=== PATIENT | female | born 1945 | race Caucasian/White ===

== ENCOUNTER 2018-10-01 19:59 | Emergency (ER) | payer MEDICARE, OTHER ==
[2018-10-01 20:10] VITALS: BP 158/92
--- NOTE | 2018-10-01 21:46 | EDM.PDOC ---
ED HPI GENERAL MEDICAL PROBLEM - General Chief Complaint: Flank Pain Stated Complaint: SIDE PAIN Time Seen by Provider: 10/01/18 20:27 Source of Information: Reports: Family, RN Notes Reviewed History Limitations: Reports: No Limitations - History of Present Illness INITIAL COMMENTS - FREE TEXT/NARRATIVE: Patient is a 73-year-old female who presents to the ED for the evaluation of bilateral side pain. The daughter notes that the patient does suffer from dementia, and so was not a very good historian. The patient was started on treatment for UTI on Wednesday, this was Keflex 250 mg daily, the daughter states that there is only one pill left, and the mother's symptoms have not seemed to subside. The daughter noticed that her mother seemed to still be uncomfortable tonight, and she is really unsure of how long the pain has been there. The patient does not characterize how long the pain has been present. She does point to the right side mainly when complaining about the pain. The daughter notes that the patient has had a cholecystectomy, but still retains her appendix. They do not know if she's had any fevers or chills at this time. She has not been complaining about any nausea or vomiting or diarrhea either. The daughter states that the patient's appetite has been good. Bilateral Lower Flank Pain Score (Numeric/FACES): 8 - Related Data Allergies Allergy/AdvReac Type Severity Reaction Status Date / Time Sulfa (Sulfonamide Allergy Rash Verified 10/01/18 20:06 Antibiotics) Home Meds: Home Meds Aspirin [Stan Chewable] 81 mg PO DAILY 12/10/13 [History] Aspirin/Acetaminophen/Caffeine [Migraine Relief Caplet] 250 mg PO Q8H PRN [History] Healthy Cell Growth 1 tab PO DAILY 09/02/14 [History] MV,Ca,Iron,Min/FA/Phytosterol [[facility] Spectravite Cardio Tablet] 1 tab PO DAILY [History] Saffron Extract [Saffron] 15 mg PO DAILY 09/02/14 [History] Sertraline [Zoloft] 50 mg PO DAILY 09/02/14 [History] cephALEXin [Keflex] 250 mg PO DAILY 09/02/14 [History] Memantine HCl [Namenda XR] 28 mg PO DAILY 03/25/16 [History] Rivastigmine [Exelon] 4.6 mg TD DAILY 03/25/16 [History] atorvaSTATin [Lipitor] 10 mg PO BEDTIME 03/25/16 [History] Past Medical History HEENT History: Reports: Impaired Vision Other HEENT History: wears glasses Cardiovascular History: Reports: High Cholesterol, Hypertension Genitourinary History: Reports: UTI, Recurrent 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: Reports: Neurological History: Reports: Alzheimers Disease Other Neuro History: dementia Psychiatric History: Reports: Alzheimers Disease, Dementia Endocrine/Metabolic History: Reports: Other (See Below) Other Endocrine/Metabolic History: 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 - Past Surgical History GI Surgical History: Reports: Cholecystectomy Social & Family History - Tobacco Use Smoking Status *Q: Never Smoker - Caffeine Use Caffeine Use: Reports: None - Recreational Drug Use Recreational Drug Use: No ED ROS GENERAL - Review of Systems Review Of Systems: See Below Constitutional: Denies: Fever, Chills HEENT: Reports: No Symptoms Respiratory: Reports: No Symptoms Cardiovascular: Reports: No Symptoms Endocrine: Reports: No Symptoms GI/Abdominal: Reports: Abdominal Pain (right sided pain) : Reports: No Symptoms, Flank Pain (right sided pain) Musculoskeletal: Reports: No Symptoms Skin: Reports: No Symptoms Neurological: Reports: No Symptoms Psychiatric: Reports: Other (dementia) Hematologic/Lymphatic: Reports: No Symptoms Immunologic: Reports: No Symptoms ED EXAM, RENAL/ - Physical Exam Exam: See Below Exam Limited By: No Limitations General Appearance: Alert, WD/WN, No Apparent Distress Head: Atraumatic, Normocephalic Neck: Normal Inspection Respiratory/Chest: No Respiratory Distress, Lungs Clear, Normal Breath Sounds, No Accessory Muscle Use, Chest Non-Tender Cardiovascular: Normal Peripheral Pulses, Regular Rate, Rhythm, No Murmur GI/Abdominal: Normal Bowel Sounds, Soft, No Distention, No Mass, Tender (right flank/side pain.) Back Exam: Normal Inspection. No: CVA Tenderness (L), CVA Tenderness (R) Extremities: Normal Inspection, Normal Capillary Refill Neurological: Alert, Oriented, Normal Cognition (pt does have dementia, but is answering questions appropriately), No Motor/Sensory Deficits Psychiatric: Normal Affect, Normal Mood Skin Exam: Warm, Dry, Intact, Normal Color, No Rash Course - Vital Signs Last Recorded V/S: Last Vital Signs Temp 97.4 F 10/01/18 20:06 Pulse 73 06/15/19 20:06 Resp 18 10/01/18 20:06 BP 158/92 H 10/01/18 20:06 Pulse Ox 100 10/01/18 20:06 - Orders/Labs/Meds Orders: Active Orders 24 hr Category Date Time Status Abdomen Pelvis wo Cont [CT] Stat Exams 10/01/18 20:47 Ordered Labs: Laboratory Tests 10/01/18 Range/Units 22:05 Urine Color Yellow (Yellow) Urine Appearance Clear (Clear) Urine pH 6.0 (5.0-8.0) Ur Specific [place] 1.010 (1.005-1.030) Urine Protein Negative (Negative) Urine Glucose (UA) Negative (Negative) Urine Ketones Negative (Negative) Urine Occult Blood Negative (Negative) Urine Nitrite Negative (Negative) Urine Bilirubin Negative (Negative) Urine Urobilinogen 0.2 (0.2-1.0) Ur Leukocyte Esterase Negative (Negative) Urine RBC 0-5 (0-5) /hpf Urine WBC 0-5 (0-5) /hpf Ur Epithelial Cells 5-10 H (0-5) /hpf Urine Bacteria Few (FEW) /hpf Urine Mucus Not seen (FEW) /hpf - Re-Assessments/Exams Free Text/Narrative Re-Assessment/Exam: 10/01/18 21:46 Patient presents to the ED for the evaluation of a possible lingering UTI. I have ordered a UA for further evaluation, and a abdomen CT to rule out pyelonephritis at this time. 10/01/18 22:[address] is done, and read by V rad, a moderate-sized hiatal hernia noted. Extensive colonic diverticulosis. Small focus of gas in the urinary bladder which could represent a UTI or instrumentation. The patient was unable to give a urinary sample before the CT, so a cathed urinary specimen was obtained after the CT. So the small focus of gas may more likely be due to a UTI that is not resolving. There is no sign of pyelonephritis at this time. UA results are still pending. 10/01/18 22:21 The patient does seem to have quite a bit of stool throughout her colon as well , which would suggest a small bit of constipation. 10/01/18 22:45 UA has been resulted and does not demonstrate any signs of lingering infection. Will provide the daughter with bottle of magnesium citrate to help relieve constipation. Departure - Departure Time of Disposition: 22:46 Disposition: Home, Self-Care 01 Condition: Fair Clinical Impression: Abdominal pain Qualifiers: Abdominal location: generalized Qualified Code(s): R10.84 - Generalized abdominal pain Constipation Qualifiers: Constipation type: other constipation type Qualified Code(s): K59.09 - Other constipation - Discharge Information *PRESCRIPTION DRUG MONITORING PROGRAM REVIEWED*: No *COPY OF PRESCRIPTION DRUG MONITORING REPORT IN PATIENT KIRSTEN: No Instructions: Constipation, Adult, [id number] Referrals: Magdy Cesar MD [Primary Care Provider] - Forms: ED Department Discharge Additional Instructions: Katie has been evaluated in the ED today for her generalized abdominal pain. Her evaluation today included a urinalysis and an abdomen and pelvis CT without contrast. Her urinalysis did not demonstrate any sign of a lingering bladder infection, please keep giving the Keflex as directed until it is gone. Her CT did demonstrate quite a large amount of stool in her colon, you have been provided with a bottle of magnesium citrate, please give one half bottle wait a few hours and then repeat with the last half bottle if no results. Recommend that you increase her oral fluid intake, and provide her with a stool softener daily such as MiraLAX or Dulcolax to keep her stools regular. Please return to the ED if her symptoms should change or worsen. - My Orders Last 24 Hours: My Active Orders 10/01/18 20:47 Abdomen Pelvis wo Cont [CT] Stat - Assessment/Plan Last 24 Hours: My Active Orders 10/01/18 20:47 Abdomen Pelvis wo Cont [CT] Stat
[2018-10-01] MEDS ORDERED: Magnesium Citrate Solution 296 ML Bottle PO ONE (22:46)
--- NOTE | 2018-10-03 10:42 | CT ---
CT abdomen and pelvis Technique: Multiple axial sections were obtained from the top of the liver inferiorly through the pubic symphysis. Intravenous and oral contrast not utilized. Lack of intravenous contrast does limit evaluation for pyelonephritis. Comparison: No prior CT abdomen or pelvis exam, previous abdominal x-ray of 01/17/13 is available. Visualized lung bases show nothing acute. Moderately large hiatal hernia is noted. Noncontrast appearance of the liver shows no discrete abnormality. Spleen shows no discrete abnormality. Adrenal glands show no nodule. Surgical clips are seen from prior cholecystectomy. Kidneys show no abnormal calcifications. No calcifications are seen along the course of the ureters. Aorta shows atherosclerotic calcification without aneurysm. No retroperitoneal adenopathy is seen. No mesenteric abnormalities are noted. Mild increased stool is seen throughout the colon. Appendix believed to be seen and is normal in size. Diffuse colonic diverticuli are seen without diverticulitis. Degenerative change and scoliosis are seen within the spine. Spondylolisthesis noted at L5-S1 due to degenerative apophyseal change. Several levels of vacuum disc phenomena are seen. Small amount of air noted within the bladder. Impression: 1. Small amount of air within the bladder. This presumably is due to recent instrumentation. Please correlate. 2. Mild increased stool within the colon and findings believed to be incidental as described above. Diagnostic code #2 I agree with preliminary report from [facility], finalized on 10/01/18, 11:16 PM Central Time
== END 2018-10-01 22:55 | disposition home or self-care (01) ==
LOC: JD.ED 19:59
DX: K59.09 Other constipation (principal); I10 Essential (primary) hypertension; E78.00 Pure hypercholesterolemia, unspecified; G30.9 Alzheimer's disease, unspecified; F02.80 Dementia in other diseases classified elsewhere, unspecified severity, without behavioral disturbance, psychotic disturbance, mood disturbance, and anxiety; Z79.82 Long term (current) use of aspirin; Z79.899 Other long term (current) drug therapy; Z88.2 Allergy status to sulfonamides
CPT/HCPCS: 74176; 81001; 99284; A9270; 99282

== ENCOUNTER 2019-05-06 15:00 | Emergency (ER) | payer MEDICARE, BC ==
--- NOTE | 2019-05-06 15:37 | EDM.PDOC ---
ED HPI GENERAL MEDICAL PROBLEM - General Chief Complaint: General Stated Complaint: PAIN ALL OVER Time Seen by Provider: 05/06/19 15:26 Source of Information: Reports: Patient, Family History Limitations: Reports: Other (Dementia) - History of Present Illness INITIAL COMMENTS - FREE TEXT/NARRATIVE: Patient is unfortunate 74-year-old female who presents to the emergency Department today with complaint of abdominal pain. Patient has severe dementia and started having pain approximately one hour prior to arrival daughter reports she was with the patient with the pain started and she brought patient to the emergency part for evaluation patient has had no nausea, no vomiting, no chest pain, no shortness of breath. Daughter reports that this pain is similar to previous episodes were patient has had a UTI. She also reports that one previous time she did have constipation with this pain. Patient does not appear ill is not running any fever is active and responsive however she is pleasantly confused Vaginal Pain Score (Numeric/FACES): 10 Right Hip Pain Score (Numeric/FACES): 6 - Related Data Allergies Allergy/AdvReac Type Severity Reaction Status Date / Time Sulfa (Sulfonamide Allergy Rash Verified 11/06/18 11:08 Antibiotics) Home Meds: Home Meds Sertraline [Zoloft] 25 mg PO DAILY 09/02/14 [History] Memantine HCl [Namenda XR] 28 mg PO DAILY 03/25/16 [History] Rivastigmine [Exelon] 4.6 mg TD DAILY 03/25/16 [History] atorvaSTATin [Lipitor] 5 mg PO BEDTIME 03/25/16 [History] Cholecalciferol (Vitamin D3) [Vitamin D3] 2,000 unit PO DAILY 05/06/19 [History] Cranberry 0 mg PO DAILY 05/06/19 [History] KCl/Na Sulf,Bicarb,Cl/PEG 3351 [GoLytely] 4,000 ml PO ONETIME #1 bottle [Rx] L.acidoph,Paracasei, B.lactis [Probiotic] 1 cap PO DAILY 05/06/19 [History] Levothyroxine [Synthroid] 88 mcg PO DAILY 05/06/19 [History] Lisinopril [Zestril] 5 mg PO DAILY 05/06/19 [History] Phytonadione [Vitamin K] 50 mcg PO DAILY 01/18/20 [History] Ubiquinol 100 mg PO DAILY 05/06/19 [History] Past Medical History HEENT History: Reports: Impaired Vision Other HEENT History: wears glasses Cardiovascular History: Reports: High Cholesterol, Hypertension Genitourinary History: Reports: UTI, Recurrent DIRECTOR GENERAL History: Reports: Neurological History: Reports: Alzheimers Disease Other Neuro History: dementia Psychiatric History: Reports: Alzheimers Disease, Dementia Endocrine/Metabolic History: Reports: Other (See Below) Other Endocrine/Metabolic 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 Denies: Constipation, Diarrhea, Decreased Appetite ED EXAM, GENERAL - Physical Exam Exam: See Below Exam Limited By: Other (Dementia) General Appearance: Alert, WD/WN, Moderate Distress Respiratory/Chest: No Respiratory Distress, Lungs Clear, Normal Breath Sounds, No Accessory Muscle Use, Chest Non-Tender Cardiovascular: Normal Peripheral Pulses, Regular Rate, Rhythm, No Edema, No Gallop, No JVD, No Murmur, No Rub GI/Abdominal: Normal Bowel Sounds, Soft, Tender (Suprapubic) Rectal (Female) Exam: Normal Exam, Other (No fecal impaction female presents for exam) Back Exam: Normal Inspection, Full Range of Motion, NT Extremities: Normal Inspection, Normal Range of Motion, Non-Tender, Normal Capillary Refill, No Pedal Edema Neurological: Alert, Other (Pleasantly confused). No: Oriented Skin Exam: Warm, Dry, Intact Course - Orders/Labs/Meds Orders: Active Orders 24 hr Category Date Time Status Abdomen 2V AP Flat Upright [CR] Stat Exams 05/06/19 15:35 Taken UA W/MICROSCOPIC [URIN] Stat Lab 05/06/19 15:55 Results Labs: Laboratory Tests 05/06/19 Range/Units 15:55 Urine Color Yellow (Yellow) Urine Appearance Clear (Clear) Urine pH 7.0 (5.0-8.0) Ur Specific [place] 1.025 (1.005-1.030) Urine Protein 3+ H (Negative) Urine Glucose (UA) Negative (Negative) Urine Ketones Negative (Negative) Urine Occult Blood 2+ H (Negative) Urine Nitrite Negative (Negative) Urine Bilirubin Negative (Negative) Urine Urobilinogen 0.2 (0.2-1.0) Ur Leukocyte Esterase Negative (Negative) - Re-Assessments/Exams Free Text/Narrative Re-Assessment/Exam: 05/06/19 16:08 Two-view abdomen, interpreted by me, stool throughout otherwise NAD Departure - Departure Time of Disposition: 16:27 Disposition: Home, Self-Care 01 Clinical Impression: Constipation Qualifiers: Constipation type: other constipation type Qualified Code(s): K59.09 - Other constipation - Discharge Information Prescriptions: KCl/Na Sulf,Bicarb,Cl/PEG 3351 [GoLytely] 4,000 ml PO ONETIME #1 bottle Referrals: Magdy Cesar MD [Primary Care Provider] - Forms: ED Department Discharge Additional Instructions: Home, rest, adequate fluids, if no results from magnesium citrate in 12 hours fill and take prescription, return as needed for worsening condition Sepsis Event Note - Focused Exam Date Exam was Performed: 05/06/19 Time Exam was Performed: 16:26 - My Orders Last 24 Hours: My Active Orders 05/06/19 15:35 Abdomen 2V AP Flat Upright [CR] Stat 05/06/19 15:55 UA W/MICROSCOPIC [URIN] Stat - Assessment/Plan Last 24 Hours: My Active Orders 05/06/19 15:35 Abdomen 2V AP Flat Upright [CR] Stat 05/06/19 15:55 UA W/MICROSCOPIC [URIN] Stat
[2019-05-06] MEDS ORDERED: Magnesium Citrate Solution 296 ML Bottle PO ONE (16:28)
[2019-05-06 16:47] VITALS: BP 134/71; PULSE 81
--- NOTE | 2019-05-06 16:58 | CR ---
Abdomen: Supine and upright views the abdomen were obtained. Comparison: Prior CT abdomen and pelvis exam of 10/01/18, no prior plain film abdominal x-ray is available. Bichamber pacemaker is seen. Scattered gas within nondilated small bowel and colon is seen which appears within normal limits. Surgical clips are seen from prior cholecystectomy. Scoliosis and slight degenerative change is noted within the spine. No free air is identified. Hiatal hernia is noted. Impression: 1. Findings as described above. 2. Nothing acute is appreciated. Diagnostic code #2 This report was dictated in [place] Standard Time
== END 2019-05-06 16:42 | disposition home or self-care (01) ==
LOC: JD.ED 15:00
DX: K59.09 Other constipation (principal); I10 Essential (primary) hypertension; E78.00 Pure hypercholesterolemia, unspecified; Z90.49 Acquired absence of other specified parts of digestive tract; Z79.899 Other long term (current) drug therapy; Z88.2 Allergy status to sulfonamides
CPT/HCPCS: 74019; 81001; 99284; A9270; 99282

== ENCOUNTER 2019-05-13 13:15 | Emergency (ER) | payer MEDICARE, BC ==
[2019-05-13 13:30] VITALS: BP 111/65; PULSE 89
--- NOTE | 2019-05-13 13:51 | EDM.PDOC ---
ED HPI GENERAL MEDICAL PROBLEM - General Chief Complaint: Abdominal Pain Stated Complaint: CONSTIPATION AND POSSIBLE UTI Time Seen by Provider: 05/13/19 13:24 Source of Information: Reports: Patient, Family History Limitations: Reports: Altered Mental Status - History of Present Illness INITIAL COMMENTS - FREE TEXT/NARRATIVE: Patient is a 74-year-old female who presents with her daughter with complaints of abrupt onset of suprapubic pain. Patient has advanced dementia and is difficult to obtain an accurate description of her symptoms, however she states that it alan and grabs at her danna area. She then makes a motion with her hands like it is cramping. The patient's daughter states that the symptoms began a couple hours ago. She said it started with her having some frequency of urination and that she to be hunched over in pain while on the toilet. She states that they then went to the grocery store in the pain progressed to where the patient was asking to go to the hospital. Daughter states the patient does have a history of recurrent UTIs. She was also seen in this ER 1 week ago today and diagnosed with constipation. The daughter states she did have a good bowel movement after taking the magnesium citrate that she was given in the ER. She did take some magnesium laxatives for couple days after that, however she has not had one since his last Wednesday. The last bowel movement that the daughter is aware of that she had was last Wednesday and at that time it was loose. Denies any fever, chills, or vomiting. Lower Abdominal Pain Score (Numeric/FACES): 9 - Related Data Allergies Allergy/AdvReac Type Severity Reaction Status Date / Time Sulfa (Sulfonamide Allergy Rash Verified 05/13/19 13:28 Antibiotics) Home Meds: Home Meds Sertraline [Zoloft] 25 mg PO DAILY 09/02/14 [History] Memantine HCl [Namenda XR] 28 mg PO DAILY 03/25/16 [History] Rivastigmine [Exelon] 4.6 mg TD DAILY 03/25/16 [History] atorvaSTATin [Lipitor] 5 mg PO BEDTIME 03/25/16 [History] Cholecalciferol (Vitamin D3) [Vitamin D3] 2,000 unit PO DAILY 05/06/19 [History] Cranberry 0 mg PO DAILY 05/06/19 [History] KCl/Na Sulf,Bicarb,Cl/PEG 3351 [GoLytely] 4,000 ml PO ONETIME #1 bottle [Rx] L.acidoph,Paracasei, B.lactis [Probiotic] 1 cap PO DAILY 05/06/19 [History] Levothyroxine [Synthroid] 88 mcg PO DAILY 05/06/19 [History] Lisinopril [Zestril] 5 mg PO DAILY 05/06/19 [History] Phytonadione [Vitamin K] 50 mcg PO DAILY 05/06/19 [History] Ubiquinol 100 mg PO DAILY 05/06/19 [History] Magnesium Citrate 295 ml PO ONETIME #1 solution 05/13/19 [Rx] Nitrofurantoin Monohyd/M-Cryst [Macrobid 100 mg Capsule] 100 mg PO BID 5 Days # 9 capsule 05/13/19 [Rx] Phenazopyridine [Pyridium] 200 mg PO TID 2 Days #6 tab 05/13/19 [Rx] Past Medical History HEENT History: Reports: Impaired Vision Other HEENT History: wears glasses Cardiovascular History: Reports: High Cholesterol, Hypertension Genitourinary History: Reports: UTI, 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 ED EXAM, RENAL/ - Physical Exam Exam: See Below Exam Limited By: Altered Mental Status General Appearance: Alert, WD/WN, Mild Distress Respiratory/Chest: No Respiratory Distress, Lungs Clear, Normal Breath Sounds, No Accessory Muscle Use, Chest Non-Tender Cardiovascular: Normal Peripheral Pulses, Regular Rate, Rhythm, No Edema, No Gallop, No JVD, No Murmur, No Rub GI/Abdominal: Normal Bowel Sounds, Soft, No Organomegaly, No Distention, No Abnormal Bruit, No Mass, Tender (suprapubic) Neurological: Alert, Oriented, CN II-XII Intact, Normal Cognition, Normal Gait, Normal Reflexes, No Motor/Sensory Deficits Psychiatric: Normal Affect, Normal Mood Skin Exam: Warm, Dry, Intact, Normal Color, No Rash Course - Vital Signs Last Recorded V/S: Last Vital Signs Temp 97.5 F 05/13/19 13:24 Pulse 89 05/13/19 13:24 Resp 20 05/13/19 13:24 BP 111/65 05/13/19 13:24 Pulse Ox 100 05/13/19 13:24 - Orders/Labs/Meds Orders: Active Orders 24 hr Category Date Time Status CULTURE URINE [RM] Stat Lab 05/13/19 16:33 Ordered Labs: Laboratory Tests 05/13/19 Range/Units 13:41 Urine Color Yellow (Yellow) Urine Appearance Cloudy H (Clear) Urine pH 6.0 (5.0-8.0) Ur Specific [place] > or = 1.030 (1.005-1.030) Urine Protein 3+ H (Negative) Urine Glucose (UA) Negative (Negative) Urine Ketones Trace H (Negative) Urine Occult Blood 2+ H (Negative) Urine Nitrite Negative (Negative) Urine Bilirubin Negative (Negative) Urine Urobilinogen 0.2 (0.2-1.0) Ur Leukocyte Esterase 1+ H (Negative) Urine RBC 40-50 H (0-5) /hpf Urine WBC 10-20 H (0-5) /hpf Ur Squamous Epith Cells 0-5 (0-5) /hpf Urine Bacteria Few (FEW) /hpf Urine Mucus Few (FEW) /hpf Meds: Medications Discontinued Medications Generic Name Dose Route Start Last Admin Trade Name Freq PRN Reason Stop Dose Admin Nitrofurantoin Macrocrystals 100 mg 05/13/19 14:13 05/13/19 14:18 Macrobid PO 05/13/19 14:14 100 mg ONETIME ONE Administration Phenazopyridine HCl 95 mg 05/13/19 14:14 05/13/19 14:18 Urinary Pain Relief PO 05/13/19 14:15 95 mg ONETIME ONE Administration - Re-Assessments/Exams Free Text/Narrative Re-Assessment/Exam: 05/13/19 14:11 X-ray patient's abdomen does still show a significant amount of stool throughout the colon with an increased amount of stool in the rectal vault as compared to her x-ray last week. Urinalysis is positive for slight infection with 1+ leukocyte esterase and 10-20 WBCs. She does also have 2+ occult blood and a 40-50 RBCs which could be related to the infection. Since the amount of RBCs in the urine is disproportionately high compared to the WBCs and the onset of symptoms was rather abrupt, I would like to rule out a kidney stone. Discussed this with the family and they are in agreement. I have ordered a abdomen pelvis CT without contrast. 05/13/19 15:03 CT was negative for any kidney stones. It did show that she has sigmoid diverticulosis as well as diverticuli in the descending colon. There is no evidence of diverticulitis seen. Discussed these findings with the patient and her son-in-law. Treatment for her urinary tract infection will be Macrobid 100 mg twice dailyor 5 days. I will also prescribe another bottle of magnesium citrate to treat her constipation as well as pyridium for urinary pain. I will send the urine for a culture. Discharge instructions as noted. Departure - Departure Time of Disposition: 15:05 Disposition: Home, Self-Care 01 Condition: Fair Clinical Impression: UTI, Urinary tract infectious disease, Diverticulosis Constipation Qualifiers: Constipation type: other constipation type Qualified Code(s): K59.09 - Other constipation - Discharge Information *PRESCRIPTION DRUG MONITORING PROGRAM REVIEWED*: No *COPY OF PRESCRIPTION DRUG MONITORING REPORT IN PATIENT KIRSTEN: No Prescriptions: Magnesium Citrate 295 ml PO ONETIME #1 solution Nitrofurantoin Monohyd/M-Cryst [Macrobid 100 mg Capsule] 100 mg PO BID 5 Days # 9 capsule Phenazopyridine [Pyridium] 200 mg PO TID 2 Days #6 tab Instructions: Urinary Tract Infection, Adult, [id number], Constipation, Adult , Urine Culture and Sensitivity Testing Referrals: Magdy Cesar MD [Primary Care Provider] - Forms: ED Department Discharge Additional Instructions: Katie was seen in the emergency department today for low abdominal pain and urinary frequency. X-ray of the abdomen did show that she has a considerable amount of stool still retained within her colon. Her urinalysis did show she also has a urinary tract infection. She has been started on Macrobid 100 mg twice daily for 5 days. She is also been prescribed Pyridium 3 times daily for the next 2 days. This is to treat the pain of the bladder infection. her urine has been sent for culture. This generally takes about 3 days. If the culture should grow back a organism that is not susceptible to the Macrobid, you will be called in a prescription will be changed. She is also been prescribed magnesium citrate for her constipation. I recommend that she drink this bottle when she returns home this evening.she would benefit from a daily stool softener such as Colace. This is not a laxative so it should not cause diarrhea however, it will soften her stools to make it easier for her to go. Ensure that she is taking an adequate amount of fluid. This will help flush the infection out of her bladder as well as encourage regular bowel movements. If she should experience any worsening symptoms or fail to improve as expected, please on hesitate to return to the emergency department. Sepsis Event Note - Evaluation Sepsis Screening Result: No Definite Risk - Focused Exam Vital Signs: Vital Signs Temp Pulse Resp BP Pulse Ox 05/13/19 13:24 97.5 F 89 20 111/65 100 Date Exam was Performed: 05/13/19 Time Exam was Performed: 16:34 - My Orders Last 24 Hours: My Active Orders 05/13/19 16:33 CULTURE URINE [RM] Stat - Assessment/Plan Last 24 Hours: My Active Orders 05/13/19 16:33 CULTURE URINE [RM] Stat
[2019-05-13] MEDS ORDERED: Nitrofurantoin Monohydrate/Macrocrystalline 100 MG Cap PO ONE (14:13)
[2019-05-13] MEDS ORDERED: Phenazopyridine 95 MG Tab PO ONE (14:14)
--- NOTE | 2019-05-13 14:41 | CR ---
Abdomen: Supine view of the abdomen was obtained. Comparison: Prior abdominal x-ray of 05/06/19. Bowel gas pattern appears normal. Surgical clips are seen from previous cholecystectomy. Scoliosis is noted within the spine. Bony structures are osteopenic. Impression: 1. Nothing acute is seen on supine abdominal x-ray. Diagnostic code #2 Study was dictated in [place] Standard Time
--- NOTE | 2019-05-13 14:53 | CT ---
CT abdomen and pelvis Technique: Multiple axial sections were obtained from above the dome of the diaphragm inferiorly to the pubic symphysis. Intravenous and oral contrast not utilized. Comparison: Prior CT abdomen and pelvis study of 10/01/18. Findings: Large hiatal hernia is noted. Visualized lung bases show nothing acute. Liver contains no focal abnormality. Surgical clips are seen from prior cholecystectomy. Spleen appears within normal limits. Adrenal glands show no nodule. Pancreas is within normal limits. Kidneys show no abnormal calcifications. No ureteral dilatation or ureteral calculus is seen. No bladder calculi are seen. Aorta shows atherosclerotic calcification without aneurysm. No retroperitoneal adenopathy or mesenteric abnormalities are seen. Numerous diverticuli are seen within the sigmoid colon with additional diverticuli being seen within the descending colon. No inflammatory change of diverticulitis is seen. No pelvic mass or adenopathy is seen. No free fluid or inflammatory change is appreciated. Appendix is felt to be visualized and is normal in size. Bone window settings were obtained which shows degenerative change within the spine. No acute osseous finding is seen. Impression: 1. No renal calculi, ureteral dilatation or ureteral stone is seen. 2. Sigmoid diverticulosis as well as diverticuli seen within the descending colon. No inflammatory change of diverticulitis is seen. 3. Other findings as noted above. Nothing acute is appreciated. Diagnostic code #2 Study was dictated in [place] Standard Time
== END 2019-05-13 15:30 | disposition home or self-care (01) ==
LOC: JD.ED 13:15
DX: K57.30 Diverticulosis of large intestine without perforation or abscess without bleeding (principal); N39.0 Urinary tract infection, site not specified; K59.09 Other constipation; I10 Essential (primary) hypertension; G30.9 Alzheimer's disease, unspecified; F02.80 Dementia in other diseases classified elsewhere, unspecified severity, without behavioral disturbance, psychotic disturbance, mood disturbance, and anxiety; Z88.2 Allergy status to sulfonamides; Z90.49 Acquired absence of other specified parts of digestive tract; Z79.899 Other long term (current) drug therapy
CPT/HCPCS: 74018; 74176; 81001; 87086; 87088; 87186; 99284; A9270

== ENCOUNTER 2019-10-28 21:20 | Emergency (ER) | payer MEDICARE, BC ==
[2019-10-28 21:30] VITALS: BP 157/105; PULSE 89
--- NOTE | 2019-10-28 22:04 | EDM.PDOC ---
<Akua Reyes - Last Filed: 11/01/19 11:03> ED HPI GENERAL MEDICAL PROBLEM - General Chief Complaint: Genitourinary Problem Stated Complaint: POSSIBLE UTI Time Seen by Provider: 10/28/19 21:28 Source of Information: Reports: Patient History Limitations: Reports: No Limitations - History of Present Illness INITIAL COMMENTS - FREE TEXT/NARRATIVE: Patient is a 74-year-old female brought in by her daughter with complaints of suprapubic cramping and burning with urination. Symptoms started abruptly this evening. Patient has advanced dementia, so communication is somewhat limited. Daughter states that earlier this evening she did complain of some burning with urination. She gave her 2 Azo. A couple hours later while she was in bed she had to run to the bathroom to void and the pain of voiding brought her to tears. She has had no fever, chills, or nausea, however in the waiting room the patient did vomit but the daughter states that she was quite anxious at that time. Up until a couple hours ago, she had been doing well. They were outside enjoying the evening and patient had no complaints. She has been eating and drinking well. Does have a history of recurrent urinary tract infections. She was seen in April of this year in the ER for urinary tract infection. After that the symptoms did resolve. She states approximately 1 month ago she was treated in the clinic for urinary tract infection, however she feels that the infection may never have completely resolved as it usually does. She cannot remember specifically what antibiotic she was started on. Lower Abdomen Pain Score (Numeric/FACES): 8 - Related Data Allergies Allergy/AdvReac Type Severity Reaction Status Date / Time Sulfa (Sulfonamide Allergy Rash Verified 10/28/19 21:30 Antibiotics) Home Meds: Home Meds Sertraline [Zoloft] 25 mg PO DAILY 09/02/14 [History] Memantine HCl [Namenda XR] 28 mg PO DAILY 03/25/16 [History] Rivastigmine [Exelon] 4.6 mg TD DAILY 03/25/16 [History] atorvaSTATin [Lipitor] 5 mg PO BEDTIME 03/25/16 [History] Cholecalciferol (Vitamin D3) [Vitamin D3] 2,000 unit PO DAILY 05/06/19 [History] Cranberry 0 mg PO DAILY 01/18/20 [History] L.acidoph,Paracasei, B.lactis [Probiotic] 1 cap PO DAILY 05/06/19 [History] Levothyroxine [Synthroid] 88 mcg PO DAILY 05/06/19 [History] Ubiquinol 100 mg PO BEDTIME 05/06/19 [History] lisinopriL [Zestril] 5 mg PO DAILY 05/06/19 [History] Past Medical History HEENT History: Reports: Impaired Vision Other HEENT History: wears glasses Cardiovascular History: Reports: High Cholesterol, Hypertension Genitourinary History: Reports: UTI, 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: Neurological History: Reports: Alzheimers Disease Other Neuro History: dementia Psychiatric History: Reports: Alzheimers Disease, Dementia Endocrine/Metabolic History: Reports: Other (See Below) 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 Denies: Fever, Chills, Weakness, Decreased Appetite HEENT: Reports: No Symptoms Respiratory: Reports: No Symptoms Cardiovascular: Reports: No Symptoms Endocrine: Reports: No Symptoms GI/Abdominal: Reports: Vomiting. Denies: Abdominal Pain, Diarrhea, Nausea : Reports: Dysuria, Frequency, Urgency. Denies: Flank Pain Musculoskeletal: Reports: No Symptoms Skin: Reports: No Symptoms Neurological: Reports: Confusion (At baseline. Patient has advanced dementia) Psychiatric: Reports: No Symptoms Hematologic/Lymphatic: Reports: No Symptoms Immunologic: Reports: No Symptoms ED EXAM, RENAL/ - Physical Exam Exam: See Below Exam Limited By: No Limitations General Appearance: Alert, WD/WN, Mild Distress Respiratory/Chest: No Respiratory Distress, Lungs Clear, Normal Breath Sounds, No Accessory Muscle Use, Chest Non-Tender Cardiovascular: Normal Peripheral Pulses, Regular Rate, Rhythm, No Edema, No Gallop, No JVD, No Murmur, No Rub GI/Abdominal: Normal Bowel Sounds, Soft, Non-Tender, No Organomegaly, No Distention, No Abnormal Bruit, No Mass (Female) Exam: Other (Suprapubic tenderness. Patient is grabbing at her perennial area.) Back Exam: Normal Inspection, Full Range of Motion. No: CVA Tenderness (L), CVA Tenderness (R) Neurological: Alert, No Motor/Sensory Deficits Psychiatric: Normal Affect, Normal Mood Course - Re-Assessments/Exams Free Text/Narrative Re-Assessment/Exam: 10/28/19 23:00 Hematology yielded a normal WBC. Sodium has low at 129, chloride low at 95, creatinine slightly elevated at 1.1, he has normal. Urinalysis was significant for 1+ occult blood, positive nitrates, 3+ leukocyte esterase, 10-20 RBCs, 75- 100 WBCs, many bacteria. Records were obtained from [facility]. It appears that on 08 October she was started on a prescription of Vantin. Due to the presence of nitrates in her urine, I feel it is a possible that she may never have cleared that infection completely. We will start her on a course of Cipro. Insta med prescription will be provided for this. Discussed with the daughter patient's low sodium. She does state that she drinks a lot of plain water. Recommended that she try to include electrolytes and her liquids as much as possible. Recommend Gatorade or Powerade, as well as possible propel flavor packets. Recommend that she follow-up in the clinic at the conclusion of the Cipro to have her urine rechecked and repeat sodium. They are in agreement with this plan. Discharge instructions documented. Departure - Departure Time of Disposition: 23:00 Disposition: Home, Self-Care 01 Condition: Good Clinical Impression: UTI, Urinary tract infectious disease, Hyponatremia - Discharge Information *PRESCRIPTION DRUG MONITORING PROGRAM REVIEWED*: No *COPY OF PRESCRIPTION DRUG MONITORING REPORT IN PATIENT KIRSTEN: No Instructions: Urinary Tract Infection, Adult Referrals: Magdy Cesar MD [Primary Care Provider] - Forms: ED Department Discharge Additional Instructions: Katie was seen in the emergency department for pain and burning with urination. Work-up included blood work, and urinalysis. Urinalysis was positive for urinary tract infection. Was also noted that her sodium was found to be slightly low. She has been started on a prescription of ciprofloxacin. Take this medication as prescribed. She may continue to use Azo as needed for discomfort. I would recommend that she try to increase her intake of electrolytes and her fluids and limit plain water to a certain degree. At the conclusion of her antibiotic treatment, I would recommend that she follow-up in the clinic with her primary care provider to have her urine rechecked to make sure she clears the infection. It would also be recommended that her sodium levels be rechecked at that time. If she should experience any new or worsening symptoms of concern, please do not hesitate to return to the emergency departme nt. Sepsis Event Note (ED) - Evaluation Sepsis Screening Result: No Definite Risk <Abdiel Kasper - Last Filed: 11/05/19 19:37> Course - Vital Signs Last Recorded V/S: Last Vital Signs Temp 98 F 10/28/19 21:29 Pulse 89 10/28/19 21:29 Resp 20 10/28/19 21:29 BP 157/105 H 10/28/19 21:29 Pulse Ox 99 10/28/19 21:29 - Orders/Labs/Meds Labs: Laboratory Tests 10/28/19 10/28/19 10/28/19 Range/Units 21:45 22:06 22:06 WBC 8.83 (3.98-10.04) K/mm3 RBC 4.84 (3.98-5.22) M/mm3 Hgb 14.8 (11.2-15.7) gm/dl Hct 45.5 H (34.1-44.9) % MCV 94.0 (79.4-94.8) fl MCH 30.6 (25.6-32.2) pg MCHC 32.5 (32.2-35.5) g/dl RDW Std Deviation 45.6 (36.4-46.3) fL Plt Count 323 (182-369) K/mm3 MPV 8.8 L (9.4-12.3) fl Neut % (Auto) 66.7 (34.0-71.1) % Lymph % (Auto) 20.6 (19.3-51.7) % [place] % (Auto) 10.8 (4.7-12.5) % Eos % (Auto) 1.4 (0.7-5.8) Baso % (Auto) 0.3 (0.1-1.2) % Neut # (Auto) 5.89 (1.56-6.13) K/mm3 Lymph # (Auto) 1.82 (1.18-3.74) K/mm3 [place] # (Auto) 0.95 H (0.24-0.36) K/mm3 Eos # (Auto) 0.12 (0.04-0.36) K/mm3 Baso # (Auto) 0.03 (0.01-0.08) K/mm3 Sodium 129 L D (136-145) mEq/L Potassium 3.7 (3.5-5.1) mEq/L Chloride 95 L D (98-107) mEq/L Carbon Dioxide 25 (21-32) mEq/L Anion Gap 12.7 (5-15) BUN 13 (7-18) mg/dL Creatinine 1.1 H (0.55-1.02) mg/dL Est Cr Clr Drug Dosing 41.37 mL/min Estimated GFR (MDRD) 48 (>60) mL/min BUN/Creatinine Ratio 11.8 L (14-18) Glucose 95 (83-115) mg/dL Calcium 8.5 (8.5-10.1) mg/dL Total Bilirubin 0.4 (0.2-1.0) mg/dL AST 21 (15-37) U/L ALT 23 (14-59) U/L Alkaline Phosphatase 109 (46-116) U/L C-Reactive Protein <0.2 (<1.0) mg/dL Total Protein 6.3 L (6.4-8.2) g/dl Albumin 3.4 (3.4-5.0) g/dl Globulin 2.9 gm/dL Albumin/Globulin Ratio 1.2 (1-2) Urine Color Yellow (Yellow) Urine Appearance Cloudy H (Clear) Urine pH 6.5 (5.0-8.0) Ur Specific [place] 1.015 (1.005-1.030) Urine Protein 1+ H (Negative) Urine Glucose (UA) Negative (Negative) Urine Ketones Negative (Negative) Urine Occult Blood 1+ H (Negative) Urine Nitrite Positive H (Negative) Urine Bilirubin Negative (Negative) Urine Urobilinogen 0.2 (0.2-1.0) Ur Leukocyte Esterase 3+ H (Negative) Urine RBC 10-20 H (0-5) /hpf Urine WBC 75-100 H (0-5) /hpf Urine WBC Clumps Few (NOT SEEN) /hpf Ur Squamous Epith Cells 0-5 (0-5) /hpf Urine Bacteria Many H (FEW) /hpf Urine Mucus Few (FEW) /hpf - Re-Assessments/Exams Free Text/Narrative Re-Assessment/Exam: 10/31/19 07:36 urine culture is growing out enterobacter cloacae, sensitivity for cipro prescribed not done.
== END 2019-10-28 23:10 | disposition home or self-care (01) ==
LOC: JD.ED 21:20
DX: N39.0 Urinary tract infection, site not specified (principal); E87.1 Hypo-osmolality and hyponatremia; I10 Essential (primary) hypertension; E78.00 Pure hypercholesterolemia, unspecified; G30.9 Alzheimer's disease, unspecified; F02.80 Dementia in other diseases classified elsewhere, unspecified severity, without behavioral disturbance, psychotic disturbance, mood disturbance, and anxiety; Z88.2 Allergy status to sulfonamides; Z79.899 Other long term (current) drug therapy
CPT/HCPCS: 36415; 80053; 81001; 85025; 86140; 87086; 87088; 87186; 99283; 99284

== ENCOUNTER 2019-11-29 13:43 | Emergency (ER) | payer MEDICARE, BC ==
[2019-11-29 14:05] VITALS: BP 108/58; PULSE 86
--- NOTE | 2019-11-29 15:47 | CR ---
Abdomen: Supine view of the abdomen was obtained. Comparison: Prior abdominal x-ray of 05/13/19. Scoliosis and degenerative changes seen within the spine. Surgical clips are seen from prior cholecystectomy. Bowel gas pattern appears normal. Calcification is noted within the left upper abdomen which appear stable. Impression: 1. Findings as noted above. 2. Nothing acute is appreciated. Diagnostic code #2 This report was dictated in [facility]
--- NOTE | 2019-11-29 16:05 | EDM.PDOC ---
ED HPI GENERAL MEDICAL PROBLEM - General Chief Complaint: Abdominal Pain Stated Complaint: ABDOMINAL PAIN Time Seen by Provider: 11/29/19 15:06 Source of Information: Reports: Patient, Family (daughter), RN Notes Reviewed History Limitations: Reports: Altered Mental Status (daughter provides most of history) - History of Present Illness INITIAL COMMENTS - FREE TEXT/NARRATIVE: Patient is a 74-year-old female who presents to the ED with her daughter for the evaluation of her abdominal pain. The daughter states that the patient has a history of dementia, and that the patient is pretty much nonverbal, but she did note that when her mother was going to the bathroom today, she was grabbing at her abdomen, and saying it hurts, and stating that she was "going to have a baby". The daughter notes that she does have issues with UTI and constipation. They have been in the ER for prior visits for constipation. She notes that the patient did have a very small bowel movement today, but does not seem to think that the patient is clearing her bowels thoroughly. Patient's not had a fever or chills, no cough/shortness of breath, nausea/vomiting/diarrhea. Patient has been eating and drinking okay. The daughter does not note any more foul odor to the urine than normal. Her primary care provider is Dr. Cesar. Middle Abdomen Pain Score (Numeric/FACES): 5 - Related Data Allergies Allergy/AdvReac Type Severity Reaction Status Date / Time Sulfa (Sulfonamide Allergy Rash Verified 11/29/19 14:00 Antibiotics) Home Meds: Home Meds Sertraline [Zoloft] 25 mg PO DAILY 09/02/14 [History] Memantine HCl [Namenda XR] 28 mg PO DAILY 03/25/16 [History] Rivastigmine [Exelon] 4.6 mg TD DAILY 03/25/16 [History] atorvaSTATin [Lipitor] 5 mg PO BEDTIME 03/25/16 [History] Cranberry 0 mg PO DAILY 05/06/19 [History] L.acidoph,Paracasei, B.lactis [Probiotic] 1 cap PO DAILY 05/06/19 [History] Levothyroxine [Synthroid] 88 mcg PO DAILY 05/06/19 [History] Ubiquinol 100 mg PO BEDTIME 05/06/19 [History] lisinopriL [Zestril] 5 mg PO DAILY 05/06/19 [History] Cefdinir [Omnicef] 300 mg PO BID 5 Days #10 cap 11/29/19 [Rx] Non-Formulary Medication [NF Drug] 1 tab PO DAILY 11/29/19 [History] Vit A/Vit C/Vit E/Zinc/Copper [Preservision Areds Softgel] 1 each PO BID 11/29/19 [History] Vitamin D3/Vitamin K2 (Mk4) [K2 Plus D3 Tablet] 1 each PO DAILY 11/29/19 [History] Past Medical History HEENT History: Reports: Impaired Vision Other HEENT History: wears glasses Cardiovascular History: Reports: High Cholesterol, Hypertension Gastrointestinal History: Reports: Chronic Constipation Genitourinary History: Reports: UTI, Recurrent DEVELOPMENT ENG History: Reports: Neurological History: Reports: Alzheimers Disease Other Neuro History: dementia Psychiatric History: Reports: Alzheimers Disease, Dementia - Past Surgical History GI Surgical History: Reports: Cholecystectomy Social & Family History - Tobacco Use Smoking Status *Q: Never Smoker - Caffeine Use Caffeine Use: Reports: None - Recreational Drug Use Recreational Drug Use: No ED ROS GENERAL - Review of Systems Review Of Systems: Comprehensive ROS is negative, except as noted in HPI. ED EXAM, GI/ABD - Physical Exam Exam: See Below Exam Limited By: No Limitations General Appearance: Alert, WD/WN, No Apparent Distress Respiratory/Chest: No Respiratory Distress, Lungs Clear, Normal Breath Sounds, No Accessory Muscle Use, Chest Non-Tender Cardiovascular: Normal Peripheral Pulses, Regular Rate, Rhythm, No Murmur GI/Abdominal Exam: Normal Bowel Sounds, Soft, Non-Tender, No Distention, No Mass Extremities: Normal Inspection, Normal Capillary Refill Neurological: Alert, No Motor/Sensory Deficits Psychiatric: Normal Affect, Normal Mood Skin Exam: Warm, Dry, Intact, Normal Color, No Rash Course - Vital Signs Last Recorded V/S: Last Vital Signs Temp 98.7 F 11/29/19 13:57 Pulse 86 11/29/19 13:57 Resp 16 11/29/19 13:57 BP 108/58 L 11/29/19 13:57 Pulse Ox 98 11/29/19 13:57 - Orders/Labs/Meds Orders: Active Orders 24 hr Category Date Time Status CULTURE URINE [RM] Routine Lab 11/29/19 16:54 Ordered Labs: Laboratory Tests 11/29/19 Range/Units 15:45 Urine Color Yellow (Yellow) Urine Appearance Cloudy H (Clear) Urine pH 6.5 (5.0-8.0) Ur Specific [place] 1.025 (1.005-1.030) Urine Protein 2+ H (Negative) Urine Glucose (UA) Negative (Negative) Urine Ketones Trace H (Negative) Urine Occult Blood 2+ H (Negative) Urine Nitrite Positive H (Negative) Urine Bilirubin Negative (Negative) Urine Urobilinogen 0.2 (0.2-1.0) Ur Leukocyte Esterase 3+ H (Negative) Urine RBC 10-20 H (0-5) /hpf Urine WBC 75-100 H (0-5) /hpf Ur Squamous Epith Cells 0-5 (0-5) /hpf Urine Bacteria Many H (FEW) /hpf Urine Mucus Few (FEW) /hpf Meds: Medications Discontinued Medications Generic Name Dose Route Start Last Admin Trade Name Freq PRN Reason Stop Dose Admin Cefdinir 300 mg 11/29/19 16:54 Omnicef PO 11/29/19 16:55 ONETIME ONE - Re-Assessments/Exams Free Text/Narrative Re-Assessment/Exam: 11/29/19 16:05 Patient presents to the ED for evaluation of her abdomen pain. KUB x-ray was taken at time of triage, and urinalysis will be performed. The KUB does demonstrate quite a bit of stool throughout her colon. Daughter states that they do give her magnesium citrate at night, to try to help keep her bowels regular, and states that sometimes she gets loose stools, and then sometimes no stools at all. I did explain that they might need to incorporate in a stool softener as well to help keep the stools soft as well. Urinalysis results are still pending. 11/29/19 16:55 Urinalysis is grossly positive for UTI at this time. Patient will be started on Omnicef, first tab to be given in the ER, urine culture will be obtained. Departure - Departure Time of Disposition: 16:55 Disposition: Home, Self-Care 01 Condition: Good Clinical Impression: UTI (urinary tract infection) Qualifiers: Urinary tract infection type: acute cystitis Hematuria presence: with hematuria Qualified Code(s): N30.01 - Acute cystitis with hematuria - Discharge Information *PRESCRIPTION DRUG MONITORING PROGRAM REVIEWED*: No *COPY OF PRESCRIPTION DRUG MONITORING REPORT IN PATIENT KIRSTEN: No Prescriptions: Cefdinir [Omnicef] 300 mg PO BID 5 Days #10 cap Instructions: Urinary Tract Infection, Adult, [id number], Constipation, Adult, [id number] Referrals: Magdy Cesar MD [Primary Care Provider] - Forms: ED Department Discharge Additional Instructions: You have been evaluated in the ED for your urinary symptoms. Your urinalysis was consistent with an acute urinary tract infection. Your urine was sent for culture, and you will be notified if you should need a change in your antibiotic. This may take up to 48 hours to result. You have been given a prescription for Omnicef (cefdinir), 300 mg 1 tablet 2 times a day for 5 days. This has been electronically sent to the [facility] pharmacy located on [place]. Please increase your oral fluid intake and try to stay adequately hydrated. Her abdomen x-ray also demonstrate quite a bit of stool throughout your colon, you were already taken mag citrate on a daily basis, please incorporate Dulcolax, Colace, or MiraLAX as a stool softener into your bowel regimen. You may also benefit from starting probiotics, this may also try to regulate the good health, and keep your bowels regular. Please return to the ED if your symptoms change or worsen. Sepsis Event Note (ED) - Evaluation Sepsis Screening Result: No Definite Risk - Focused Exam Vital Signs: Vital Signs Temp Pulse Resp BP Pulse Ox 11/29/19 13:57 98.7 F 86 16 108/58 L 98 - My Orders Last 24 Hours: My Active Orders 11/29/19 16:54 CULTURE URINE [RM] Routine - Assessment/Plan Last 24 Hours: My Active Orders 11/29/19 16:54 CULTURE URINE [RM] Routine
[2019-11-29] MEDS ORDERED: Cefdinir 300 MG Cap PO ONE (16:54)
== END 2019-11-29 17:10 | disposition home or self-care (01) ==
LOC: JD.ED 13:43
DX: N30.01 Acute cystitis with hematuria (principal); E78.00 Pure hypercholesterolemia, unspecified; I10 Essential (primary) hypertension; G30.9 Alzheimer's disease, unspecified; F02.80 Dementia in other diseases classified elsewhere, unspecified severity, without behavioral disturbance, psychotic disturbance, mood disturbance, and anxiety; Z79.899 Other long term (current) drug therapy; Z88.2 Allergy status to sulfonamides
CPT/HCPCS: 74018; 81001; 87086; 87088; 87186; 99284; A9270; 99283

== ENCOUNTER 2019-12-02 18:00 | Emergency (ER) | payer MEDICARE, BC ==
[2019-12-02 18:09] VITALS: BP 130/74; PULSE 68
[2019-12-02] MEDS ORDERED: Sodium Chloride 0.9% 10 ML Syringe FLUSH PRN (18:23)
--- NOTE | 2019-12-02 19:00 | EDM.PDOC ---
<Roland Carballo - Last Filed: 12/02/19 18:46> ED HPI GENERAL MEDICAL PROBLEM - General Chief Complaint: General Stated Complaint: DEX AMBULANCE Time Seen by Provider: 12/02/19 18:23 Source of Information: Reports: Patient, Family - History of Present Illness INITIAL COMMENTS - FREE TEXT/NARRATIVE: Patient brought to the ER by EMS due to pain from a fall this morning. Pt is advanced dementia and is a poor historian. History was gathered from pt's daughter. It was reported by daughter that around 0600 this morning the daughter heard a loud noise coming from pt's bathroom. Upon investigating pt was found lying on the bathroom floor. The toilet had been moved to some degree off it's base. Pt showed that she was in pain to her back, however assessment showed no trauma to head, neck, arms, or legs. Furthermore, pt showed to have full mobility and no hematomas or abrasions were found. Pt continued to show back pain with decreased mobility due to the pain. Local EMS was called to assist pt to the ED. EMS reports administering a dose of Fentanyl on scene which improved pt's agitation. Pt is able to indicate that her pain is located in her mid thoracic spine be tween her shoulder blades. Pt was sitting at the edge of the bed upon entering room and was also able to stand and bear weight. Beyond that pt is unable to provide any input into her current medical history. Onset: Today, Sudden Duration: Hour(s): Location: Reports: Back Right Upper Back Pain Score (Numeric/FACES): 5 - Related Data Allergies Allergy/AdvReac Type Severity Reaction Status Date / Time Sulfa (Sulfonamide Allergy Rash Verified 12/02/19 18:09 Antibiotics) Home Meds: Home Meds Sertraline [Zoloft] 25 mg PO DAILY 09/02/14 [History] Memantine HCl [Namenda XR] 28 mg PO DAILY 03/25/16 [History] Rivastigmine [Exelon] 4.6 mg TD DAILY 03/25/16 [History] atorvaSTATin [Lipitor] 5 mg PO BEDTIME 03/25/16 [History] Cranberry 0 mg PO DAILY 05/06/19 [History] L.acidoph,Paracasei, B.lactis [Probiotic] 1 cap PO DAILY 05/06/19 [History] Levothyroxine [Synthroid] 88 mcg PO DAILY 05/06/19 [History] Ubiquinol 100 mg PO BEDTIME 05/06/19 [History] lisinopriL [Zestril] 5 mg PO DAILY 05/06/19 [History] Cefdinir [Omnicef] 300 mg PO BID 5 Days #10 cap 11/29/19 [Rx] Non-Formulary Medication [NF Drug] 1 tab PO DAILY 11/29/19 [History] Vit A/Vit C/Vit E/Zinc/Copper [Preservision Areds Softgel] 1 each PO BID 11/17 06/08 [History] Vitamin D3/Vitamin K2 (Mk4) [K2 Plus D3 Tablet] 1 each PO DAILY 11/29/19 [History] Acetaminophen/HYDROcodone [Francitas 325-5 MG] 1 tab PO Q6H PRN #20 tablet 12/02/19 [Rx] Past Medical History HEENT History: Reports: Impaired Vision Other HEENT History: wears glasses Cardiovascular History: Reports: High Cholesterol, Hypertension Respiratory History: Reports: None Gastrointestinal History: Reports: Chronic Constipation Genitourinary History: Reports: UTI, Recurrent 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: Musculoskeletal History: Reports: None Neurological History: Reports: Alzheimers Disease Other Neuro History: dementia Psychiatric History: Reports: Alzheimers Disease, Dementia Endocrine/Metabolic History: Reports: Other (See Below) Other Endocrine/Metabolic History: 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 Hematologic History: Reports: None Immunologic History: Reports: None Oncologic (Cancer) History: Reports: None Dermatologic History: Reports: None - Infectious Disease History Infectious Disease History: Reports: None - Past Surgical History GI Surgical History: Reports: Cholecystectomy Social & Family History - Tobacco Use Smoking Status *Q: Never Smoker - Caffeine Use Caffeine Use: Reports: None ED ROS GENERAL - Review of Systems Review Of Systems: Unable To Obtain (Pt has advanced dementia and is able to only provide limited input to her current health condition.) Musculoskeletal: Reports: Back Pain (Pt points to her mid thoracic spine when asked where it hurts.) ED EXAM, GENERAL - Physical Exam Exam: See Below Exam Limited By: Altered Mental Status General Appearance: Alert, WD/WN, Anxious Ears: Normal External Exam Nose: Normal Inspection, Normal Mucosa, No Blood Throat/Mouth: Normal Inspection, Normal Lips, Normal Teeth, Normal Gums, Normal Oropharynx, Normal Voice, No Airway Compromise Head: Atraumatic, Normocephalic Neck: Normal Inspection, Non-Tender, Full Range of Motion Respiratory/Chest: No Respiratory Distress, Lungs Clear, Normal Breath Sounds, No Accessory Muscle Use, Chest Non-Tender Cardiovascular: Normal Peripheral Pulses, No JVD, Irregularly Irregular (Pt has a pacemaker and is internally paced) Peripheral Pulses: 2+: Radial (L), Radial (R) Rectal (Female) Exam: Deferred Back Exam: Decreased Range of Motion (pt shows increased pain with lateral movements), Paraspinal Tenderness, Vertebral Tenderness (pain with palpation over mid thoracic spine) Neurological: Alert, Normal Gait, Confused, Disoriented, Slow to Respond, Memory Loss Recent Events (Patient shows no recollection of this mornings injury). No: Oriented, Normal Cognition Psychiatric: No: Anxious Skin Exam: Warm, Dry, Intact, Normal Color, No Rash. No: Cyanosis, Ecchymosis, Erythema Departure - Departure Disposition: Home, Self-Care 01 Clinical Impression: Fall Qualifiers: Encounter type: initial encounter Qualified Code(s): W19.XXXA - Unspecified fall, initial encounter Midline thoracic back pain Qualifiers: Chronicity: acute Qualified Code(s): M54.6 - Pain in thoracic spine - Discharge Information Instructions: Acute Back Pain, Adult Forms: ED Department Discharge Additional Instructions: You have been evaluated in the ED for your injuries after your fall. Your CTs demonstrated no bleed in your head, or acute fractures of your head, neck, or any abnormalities in your abdomen or pelvis, other than your ongoing UTI. There was a questionable compression fracture at T8, but this is felt to be more of a chronic change and not acute as result from today's fall. Neurosurgery was consulted regarding this compression fracture, they recommend symptomatic management and reevaluation in 4 weeks for possible MRI if you are not feeling much better. You will need to coordinate this with your primary care provider, if your symptoms are not improving. Please use ice as tolerated to the affected area. You may take Tylenol 500 mg or ibuprofen 600mg q6 hrs for pain relief. Please do so until you have a tolerable level of pain with activity. Do not exceed 4000mg Tylenol, Do not exceed 3200mg ibuprofen in a 24 hour time period. You were given a prescription for a strong pain medication, hydrocodone/bobby taminophen 5/325, please take 1 tab every 6 hours as needed for pain not relieved by Tylenol or ibuprofen alone. Please note this does contain Tylenol in it, so do not take more than 4000 mg in a 24-hour time span. These medications can be addictive, so please take as few as possible to achieve adequate pain control. These meds can also be quite constipating, recommend that you increase your oral fluid intake and take a stool softener like MiraLAX while taking these medications. Your prescription was electronically sent to [facility] pharmacy located near [facility], this pharmacy is only open from 12 to 4 PM on Sundays, you will need to go there during this timeframe to obtain this medication and take as prescribed. Please return to ED if your symptoms should change or worsen. Sepsis Event Note (ED) - Evaluation Sepsis Screening Result: No Definite Risk <Laura Terrazas V - Last Filed: 12/02/19 21:43> Course - Vital Signs Last Recorded V/S: Last Vital Signs Temp 97.8 F 12/02/19 18:06 Pulse 68 12/02/19 18:06 Resp 16 12/02/19 18:06 BP 130/74 12/02/19 18:06 Pulse Ox 97 12/02/19 18:06 - Orders/Labs/Meds Orders: Active Orders 24 hr Category Date Time Status Peripheral IV Care [RC] . DIRECTED Care 12/02/19 18:23 Ordered Cervical Spine wo Cont [CT] Stat Exams 12/02/19 18:22 Ordered Chest Abdomen Pelvis wo Cont [CT] Stat Exams 12/02/19 18:22 Ordered Head wo Cont [CT] Stat Exams 12/02/19 18:22 Ordered Sodium Chloride 0.9% [Saline Flush] Med 12/02/19 18:23 Ordered 10 ml FLUSH ASDIRECTED PRN Peripheral IV Insertion Adult [OM.PC] Routine Oth 12/02/19 18:23 Ordered Medication Orders Sodium Chloride (Saline Flush) 10 ml FLUSH ASDIRECTED PRN PRN Reason: Keep Vein Open Last Admin: 12/02/19 18:24 Dose: 10 ml Documented by: LOGAN Labs: Laboratory Tests 12/02/19 12/02/19 Range/Units 19:20 19:20 WBC 9.33 (3.98-10.04) K/mm3 RBC 5.10 (3.98-5.22) M/mm3 Hgb 15.5 (11.2-15.7) gm/dl Hct 47.8 H (34.1-44.9) % MCV 93.7 (79.4-94.8) fl MCH 30.4 (25.6-32.2) pg MCHC 32.4 (32.2-35.5) g/dl RDW Std Deviation 45.4 (36.4-46.3) fL Plt Count 317 (182-369) K/mm3 MPV 8.8 L (9.4-12.3) fl Neut % (Auto) 75.2 H (34.0-71.1) % Lymph % (Auto) 13.7 L (19.3-51.7) % [place] % (Auto) 9.6 (4.7-12.5) % Eos % (Auto) 0.8 (0.7-5.8) Baso % (Auto) 0.4 (0.1-1.2) % Neut # (Auto) 7.01 H (1.56-6.13) K/mm3 Lymph # (Auto) 1.28 (1.18-3.74) K/mm3 [place] # (Auto) 0.90 H (0.24-0.36) K/mm3 Eos # (Auto) 0.07 (0.04-0.36) K/mm3 Baso # (Auto) 0.04 (0.01-0.08) K/mm3 Sodium 140 D (136-145) mEq/L Potassium 3.6 (3.5-5.1) mEq/L Chloride 105 (98-107) mEq/L Carbon Dioxide 24 (21-32) mEq/L Anion Gap 14.6 (5-15) BUN 15 (7-18) mg/dL Creatinine 1.1 H (0.55-1.02) mg/dL Est Cr Clr Drug Dosing 37.97 mL/min Estimated GFR (MDRD) 48 (>60) mL/min BUN/Creatinine Ratio 13.6 L (14-18) Glucose 106 (83-115) mg/dL Calcium 8.7 (8.5-10.1) mg/dL Magnesium 2.2 (1.8-2.4) mg/dl Total Bilirubin 0.5 (0.2-1.0) mg/dL AST 22 (15-37) U/L ALT 31 (14-59) U/L Alkaline Phosphatase 103 (46-116) U/L Total Protein 6.7 (6.4-8.2) g/dl Albumin 3.5 (3.4-5.0) g/dl Globulin 3.2 gm/dL Albumin/Globulin Ratio 1.1 (1-2) Meds: Medications Generic Name Dose Route Start Last Admin Trade Name Kelly PRN Reason Stop Dose Admin Sodium Chloride 10 ml 12/02/19 18:23 12/02/19 18:24 Saline Flush FLUSH 10 ml ASDIRECTED PRN Administration Keep Vein Open - Re-Assessments/Exams Free Text/Narrative Re-Assessment/Exam: 12/02/19 19:28 I have read and reviewed the student's HPI and examined the patient and agree with Nohelia Carballo, HEAD MVA REACTOR OPERATOR-student. Did order Head, cervical and chest/abdomen/pelvis CT for evaluation of injury. Basic labs will be drawn as well to evaluate for any abnormalities that could have precipitated the fall. 12/02/19 19:31 Patient's head and neck CT has been read by Michaela harding as no acute hemorrhage skull fractures or changes within the cervical spine. The chest abdomen pelvis CT is also pending at this time. 12/02/19 19:47 The patient's chest/abdomen/pelvis CT without contrast demonstrates no acute findings. There are no acute rib fractures appreciated. There was a moderate compression fracture of the inferior aspect of T8, that was not present in 2016. Precise age is indeterminate, and may be chronic. But there are no acute fractures noted. But as she has had an acute fall today, I would err on the side of caution and say this more of an acute finding. 12/02/19 19:50 Laboratory evaluation is coming back, unequivocal. Metabolic panel is still pending. 12/02/19 19:57 Metabolic panel has returned, and demonstrates no acute finding, that would be the cause of her fall. I will talk with the family regarding the patient's results, and have him follow-up with her regular provider, for possible pain clinic referral due to the compression fracture. 12/02/19 20:50 I have consulted neurosurgery through [facility] in [place], for consultation regarding her injury. As the patient is tender over this area. 12/02/19 21:36 Dr. Hill thinks that the compression fracture is old, but states to treat the patient's symptoms and reevaluate in a couple weeks for a possible MRI of the area if she is not improving. Departure - Departure Time of Disposition: 21:39 Condition: Fair - Discharge Information *PRESCRIPTION DRUG MONITORING PROGRAM REVIEWED*: Yes *COPY OF PRESCRIPTION DRUG MONITORING REPORT IN PATIENT KIRSTEN: No Sepsis Event Note (ED) - Focused Exam Vital Signs: Vital Signs Temp Pulse Resp BP Pulse Ox 12/02/19 18:06 97.8 F 68 16 130/74 97 - My Orders Last 24 Hours: My Active Orders 12/02/19 18:22 Cervical Spine wo Cont [CT] Stat Chest Abdomen Pelvis wo Cont [CT] Stat Head wo Cont [CT] Stat 12/02/19 18:23 Peripheral IV Care [RC] . DIRECTED Sodium Chloride 0.9% [Saline Flush] 10 ml FLUSH ASDIRECTED PRN Peripheral IV Insertion Adult [OM.PC] Routine - Assessment/Plan Last 24 Hours: My Active Orders 12/02/19 18:22 Cervical Spine wo Cont [CT] Stat Chest Abdomen Pelvis wo Cont [CT] Stat Head wo Cont [CT] Stat 12/02/19 18:23 Peripheral IV Care [RC] . DIRECTED Sodium Chloride 0.9% [Saline Flush] 10 ml FLUSH ASDIRECTED PRN Peripheral IV Insertion Adult [OM.PC] Routine
[2019-12-02] MEDS ORDERED: Acetaminophen/HYDROcodone 325-5 MG Tab PO ONE (21:38)
--- NOTE | 2019-12-03 13:26 | CT ---
CT cervical spine Technique: Multiple axial sections were obtained from above C1 inferiorly to the bottom of T2. Reconstructed coronal and sagittal images were obtained. Comparison: No prior cervical spine imaging is available. Findings: Severe disc space narrowing noted at C4-5, C5-6 and C6-7. Anterior disc space narrowing at C7-T1. Posterior osteophytes are noted at C4-5 through C6-7. Anterior osteophytes scattered throughout cervical spine. Degenerative change is noted between the dens and anterior arch of C1. Moderate narrowing of both neural foramina is noted at C5-6. Mild narrowing on the left side of the neural foramina at C4-5. Degenerative change is also noted within both temporomandibular joints. No acute fracture or subluxation is appreciated. Surgical clips are seen in the area of the thyroid gland presumably from prior thyroidectomy. Impression: 1. Degenerative change as noted above. 2. Nothing acute is appreciated on CT study of the cervical spine. Diagnostic code #2 This report was dictated in MDT I agree with preliminary report from pam, finalized on 12/02/19, 8:22 PM Central Daylight Time
--- NOTE | 2019-12-03 13:31 | CT ---
CT chest Technique: Multiple axial sections were obtained from above the lung apices inferiorly through the lung bases. Intravenous contrast was not utilized. Comparison: Prior chest CT of 03/25/16. Findings: Prior thyroidectomy is noted. Aorta shows atherosclerotic change. Mediastinum shows no hematoma. Artifact noted from pacemaker. No pericardial thickening is seen. Moderate to large hiatal hernia is noted. Emphysematous changes are seen within both lungs. No acute parenchymal change is seen. Bone window settings were reviewed. Compression deformity is noted of T8 which shows no definite acute fracture lines and this could be chronic but occurring cysts in the interim from prior study from 2016. No definite acute osseous finding is appreciated. Impression: 1. Compression deformity of T8 most likely old but occurring in the interim from prior study of 2016. 2. Emphysematous change. 3. Nothing acute is definitely appreciated on the noncontrast CT study of the chest. Diagnostic code #2 This report was dictated in MDT I agree with preliminary report from [facility], finalized on 12/02/19, 8:[address] Time CT abdomen and pelvis Technique: Multiple axial sections were obtained from above the dome of the diaphragm inferiorly through the pubic symphysis. Intravenous and oral contrast was not utilized. Comparison: Prior CT abdomen and pelvis study of 12/02/19. Findings: Noncontrast appearance of the liver appears within normal limits. Surgical clips are seen from previous cholecystectomy. Spleen appears within normal limits. Kidneys show no hydronephrosis or abnormal calcifications. Adrenal glands show no nodule. Pancreas shows no discrete abnormality. Aorta shows atherosclerotic calcification without aneurysm. No retroperitoneal adenopathy or mesenteric abnormalities are seen. Appendix is seen which is normal. No pelvic mass or adenopathy is noted. Innumerable sigmoid diverticuli are seen which continue into the descending colon. Slight increased stool is seen throughout the colon. Bladder wall is somewhat thickened most likely relating to the degree of distention. Bone window settings were reviewed. Degenerative change scattered within the lumbar spine. No acute osseous finding is appreciated. Impression: 1. Nonacute findings as noted above. Diagnostic code #2 This report was dictated in MDT I agree with preliminary report from [facility], finalized on 12/02/19, 8:35 PM Central Daylight Time
--- NOTE | 2019-12-03 13:32 | CT ---
Head CT Technique: Multiple axial sections through the brain were obtained. Intravenous contrast was not utilized. Comparison: No prior intracranial imaging is available. Findings: Ventricles along with basal cisterns and sulci over the convexities are moderately prominent. Diminished density is noted within the periventricular and subcortical white matter. This is most likely due to small vessel ischemic demyelination change. No other abnormal parenchymal densities are seen. No evidence of intracranial hemorrhage. No midline shift or mass-effect is seen. Bone window settings were reviewed. Visualized paranasal sinuses and mastoid sinuses show nothing acute. No acute calvarial finding is seen. Impression: 1. Senescent change as noted above. 2. No acute intracranial abnormality is appreciated. Diagnostic code #2 This report was dictated in MDT I agree with preliminary report from [facility], finalized on 12/02/19, 8:21 PM Central Daylight Time
== END 2019-12-02 22:05 | disposition home or self-care (01) ==
LOC: JD.ED 18:00
DX: M54.6 Pain in thoracic spine (principal); E78.00 Pure hypercholesterolemia, unspecified; I10 Essential (primary) hypertension; G30.9 Alzheimer's disease, unspecified; F02.80 Dementia in other diseases classified elsewhere, unspecified severity, without behavioral disturbance, psychotic disturbance, mood disturbance, and anxiety; Z79.899 Other long term (current) drug therapy; Z88.2 Allergy status to sulfonamides; W19.XXXA Unspecified fall, initial encounter
CPT/HCPCS: 36415; 70450; 71250; 72125; 74176; 80053; 83735; 85025; 99284; A9270; 99283

== ENCOUNTER 2019-12-26 11:11 | Emergency (ER) | payer MEDICARE, BC ==
--- NOTE | 2019-12-26 11:49 | EDM.PDOC ---
ED HPI GENERAL MEDICAL PROBLEM - General Chief Complaint: Abdominal Pain Stated Complaint: ABDOMINAL PAIN Time Seen by Provider: 12/26/19 11:48 Source of Information: Reports: Patient, Family (daughter), RN Notes Reviewed - History of Present Illness INITIAL COMMENTS - FREE TEXT/NARRATIVE: 74 yr old lady brought in by daughter with abd pain. She was having severe pain at home, now it seems to be gone. Pt does have Alzheimers so can't give a good hx herself. She has been struggling with constipation. Had a smaller than usual BM yesterday and and very small BM today at time of having pain. Now pain is gone. No fever, cough, or vomiting. Abdomen Pain Score (Numeric/FACES): 10 - Related Data Allergies Allergy/AdvReac Type Severity Reaction Status Date / Time Sulfa (Sulfonamide Allergy Rash Verified 12/02/19 18:09 Antibiotics) Home Meds: Home Meds Sertraline [Zoloft] 25 mg PO DAILY 09/02/14 [History] Memantine HCl [Namenda XR] 28 mg PO DAILY 03/25/16 [History] Rivastigmine [Exelon] 4.6 mg TD DAILY 03/25/16 [History] atorvaSTATin [Lipitor] 5 mg PO BEDTIME 03/25/16 [History] Cranberry 0 mg PO DAILY 05/06/19 [History] L.acidoph,Paracasei, B.lactis [Probiotic] 1 cap PO DAILY 05/06/19 [History] Levothyroxine [Synthroid] 88 mcg PO DAILY 05/06/19 [History] Ubiquinol 100 mg PO BEDTIME 05/06/19 [History] lisinopriL [Zestril] 5 mg PO DAILY 05/06/19 [History] Cefdinir [Omnicef] 300 mg PO BID 5 Days #10 cap 11/29/19 [Rx] Non-Formulary Medication [NF Drug] 1 tab PO DAILY 11/29/19 [History] Vit A/Vit C/Vit E/Zinc/Copper [Preservision Areds Softgel] 1 each PO BID 11/29/19 [History] Vitamin D3/Vitamin K2 (Mk4) [K2 Plus D3 Tablet] 1 each PO DAILY 11/29/19 [History] Acetaminophen/HYDROcodone [[place] 325-5 MG] 1 tab PO Q6H PRN #20 tablet 12/02/19 [Rx] Past Medical History HEENT History: Reports: Impaired Vision Other HEENT History: wears glasses Cardiovascular History: Reports: High Cholesterol, Hypertension Respiratory History: Reports: None Gastrointestinal History: Reports: Chronic Constipation Genitourinary History: Reports: UTI, Recurrent [employer] History: Reports: Musculoskeletal History: Reports: None Neurological History: Reports: Alzheimers Disease Other Neuro History: dementia Psychiatric History: Reports: Alzheimers Disease, Dementia Endocrine/Metabolic History: Reports: Other (See Below) Other Endocrine/Metabolic History: 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 Hematologic History: Reports: None Immunologic History: Reports: None Oncologic (Cancer) History: Reports: None Dermatologic History: Reports: None - Infectious Disease History Infectious Disease History: Reports: None - Past Surgical History GI Surgical History: Reports: Cholecystectomy Social & Family History - Tobacco Use Smoking Status *Q: Unknown Ever Smoked - Caffeine Use Caffeine Use: Reports: None - Recreational Drug Use Recreational Drug Use: No ED ROS GENERAL - Review of Systems Review Of Systems: See Below Constitutional: Denies: Fever, Chills, Diaphoresis HEENT: Reports: No Symptoms Respiratory: Denies: Shortness of Breath Cardiovascular: Denies: Chest Pain GI/Abdominal: Reports: Abdominal Pain, Constipation. Denies: Diarrhea, Vomiting Musculoskeletal: Reports: No Symptoms Skin: Reports: No Symptoms Neurological: Reports: No Symptoms ED EXAM, GI/ABD - Physical Exam Exam: See Below General Appearance: Alert, No Apparent Distress Head: Atraumatic Neck: Supple Respiratory/Chest: No Respiratory Distress, Lungs Clear Cardiovascular: Regular Rate, Rhythm GI/Abdominal Exam: Soft, Non-Tender. No: Guarding Extremities: Normal Inspection, Normal Range of Motion. No: Pedal Edema, Leg Pain Neurological: Alert, No Motor/Sensory Deficits Skin Exam: Warm, Dry, Normal Color Course - Vital Signs Last Recorded V/S: Last Vital Signs Temp 96.9 F 12/26/19 12:24 Pulse 69 12/26/19 12:24 Resp 16 12/26/19 12:24 BP 119/76 12/26/19 12:24 Pulse Ox 98 12/26/19 12:24 - Re-Assessments/Exams Free Text/Narrative Re-Assessment/Exam: 12/27/19 08:43 will start her on a stool softner, daughter has a bottle of mag citrate at home, discharge instr. as documented. Departure - Departure Time of Disposition: 14:00 Disposition: Home, Self-Care 01 Condition: Fair Clinical Impression: Abdominal pain Qualifiers: Abdominal location: generalized Qualified Code(s): R10.84 - Generalized abdominal pain Constipation Qualifiers: Constipation type: other constipation type Qualified Code(s): K59.09 - Other constipation - Discharge Information Instructions: Constipation, Adult, [id number] Referrals: Magdy Cesar MD [Primary Care Provider] - Forms: ED Department Discharge Additional Instructions: Start a stool softner once a day such as colace available OTC, continue to encourage fluids. Go ahead and give a dose of Mag sulfate when you get home. Continue miralax once or twice daily. Return to ED as needed if symptoms worsening in any way. Sepsis Event Note (ED) - Evaluation Sepsis Screening Result: No Definite Risk
[2019-12-26 12:24] VITALS: BP 119/76; PULSE 69
== END 2019-12-26 12:26 | disposition home or self-care (01) ==
LOC: JD.ED 11:11
DX: K59.09 Other constipation (principal); E78.00 Pure hypercholesterolemia, unspecified; I10 Essential (primary) hypertension; G30.9 Alzheimer's disease, unspecified; F02.80 Dementia in other diseases classified elsewhere, unspecified severity, without behavioral disturbance, psychotic disturbance, mood disturbance, and anxiety; Z79.899 Other long term (current) drug therapy
CPT/HCPCS: 99282; 99283

== ENCOUNTER 2020-03-05 10:47 | Emergency (ER) | payer MEDICARE, BC ==
[2020-03-05] MEDS ORDERED: Sodium Chloride 0.9% 10 ML Syringe FLUSH PRN ×2 (11:02→13:23)
--- NOTE | 2020-03-05 11:13 | EDM.PDOC ---
ED HPI GENERAL MEDICAL PROBLEM - General Chief Complaint: General Stated Complaint: D[facility] AMBULANCE Time Seen by Provider: 03/05/20 11:00 Source of Information: Reports: EMS Notes Reviewed, Family (Daughter-Rolanda), RN Notes Reviewed History Limitations: Reports: Altered Mental Status (Severe Dementia) - History of Present Illness INITIAL COMMENTS - FREE TEXT/NARRATIVE: Patient is a 75-year-old female who is brought into the ED via [facility] for the evaluation of her nausea/vomiting, and ongoing weakness. Most of the history was obtained per her daughter as the patient has a history of severe dementia. The daughter, Meeta, states that she does get prone to a lot of UTIs, and was recently started on low-dose cephalexin 250 mg daily for prophylaxis of this. She had been on low-dose Bactrim, but had a skin reaction last week, so was taken off subsequently. Per the ambulance report, the patient's O2 sats are 77% on room air so they start her on oxygen. The patient's vitals have been stable here, she has been afebrile, O2 sats have been in the upper 90s on room air. The daughter states that yesterday the patient did not really eat much, and she vomited once or twice. They try to get some applesauce and fluids down her but again she did not eat much. They note that this kept going on today, she has not had a fever at home, but the daughter states she felt clammy and warm. She has not had any cough or shortness of breath, and they have been very vigilant about not letting people in the home. Her primary care provider is Viridiana Eid. - Related Data Allergies Allergy/AdvReac Type Severity Reaction Status Date / Time Sulfa (Sulfonamide Allergy Rash Verified 12/02/19 18:09 Antibiotics) Home Meds: Home Meds Sertraline [Zoloft] 25 mg PO DAILY 09/02/14 [History] Memantine HCl [Namenda XR] 28 mg PO DAILY 03/25/16 [History] Rivastigmine [Exelon] 4.6 mg TD DAILY 03/25/16 [History] atorvaSTATin [Lipitor] 5 mg PO BEDTIME 03/25/16 [History] Cranberry 0 mg PO DAILY 05/06/19 [History] L.acidoph,Paracasei, B.lactis [Probiotic] 1 cap PO DAILY 05/06/19 [History] Levothyroxine [Synthroid] 88 mcg PO DAILY 05/06/19 [History] Ubiquinol 100 mg PO BEDTIME 05/06/19 [History] lisinopriL [Zestril] 5 mg PO DAILY 05/06/19 [History] Non-Formulary Medication [NF Drug] 1 tab PO DAILY 11/29/19 [History] Vit A/Vit C/Vit E/Zinc/Copper [Preservision Areds Softgel] 1 each PO BID 11/29/19 [History] Vitamin D3/Vitamin K2 (Mk4) [K2 Plus D3 Tablet] 1 each PO DAILY 11/29/19 [History] Ondansetron [Zofran ODT] 4 mg PO Q8H PRN #15 tab.dis 03/05/20 [Rx] Rivaroxaban [Xarelto] 15 mg PO BID 21 Days #42 tab 03/05/20 [Rx] Past Medical History HEENT History: Reports: Impaired Vision Other HEENT History: wears glasses Cardiovascular History: Reports: High Cholesterol, Hypertension Gastrointestinal History: Reports: Chronic Constipation Genitourinary History: Reports: UTI, Recurrent (on low dose Keflex for this) [employer]OURCES MANAGER History: Reports: Neurological History: Reports: Alzheimers Disease Other Neuro History: severe dementia Psychiatric History: Reports: Alzheimers Disease, Dementia (severe dementia) Endocrine/Metabolic History: Reports: Other (See Below) Other Endocrine/Metabolic History: possible gout - Past Surgical History GI Surgical History: Reports: Cholecystectomy Social & Family History - Caffeine Use Caffeine Use: Reports: None - Living Situation & Occupation Living situation: Reports: with Family (Lives with daughters; full care) ED ROS GENERAL - Review of Systems Review Of Systems: Comprehensive ROS is negative, except as noted in HPI. ED EXAM, SEPSIS - Physical Exam Exam: See Below Exam Limited By: No Limitations General Appearance: Alert, WD/WN, No Apparent Distress Throat/Mouth: Normal Inspection, Normal Lips, Normal Teeth, Normal Gums, Normal Oropharynx, Normal Voice, No Airway Compromise Head: Atraumatic Neck: Normal Inspection Respiratory/Chest: No Respiratory Distress, Lungs Clear, Normal Breath Sounds, No Accessory Muscle Use, Chest Non-Tender Cardiovascular: Normal Peripheral Pulses, Regular Rate, Rhythm, No Edema, No Murmur Peripheral Pulses: 2+: Radial (L), Radial (R) Extremities: Normal Inspection, Normal Capillary Refill Neurological: Alert (when stimulated, but falls back asleep quickly) Skin: Warm, Dry, Intact, Normal Color, No Rash #1 Interpretation EKG Date: 03/05/20 Time: 11:52 Rhythm: Other (atrial paced complexes) Rate (Beats/Min): 70 [place]: LAD-Left [place] Deviation (Minimal -3 ) P-Wave: Present QRS: Normal ST-T: Normal QT: Normal EKG Interpretation Comments: No obvious ischemia or acute ST changes noted, reviewed by myself and Dr. Hameed. Course - Vital Signs Last Recorded V/S: Last Vital Signs Temp 97.0 F 03/05/20 11:18 Pulse 72 03/05/20 11:18 Resp 18 03/05/20 11:18 BP 134/82 03/05/20 11:18 Pulse Ox 98 03/05/20 11:18 - Orders/Labs/Meds Orders: Active Orders 24 hr Category Date Time Status EKG Documentation Completion [RC] STAT Care 03/05/20 11:01 Active Peripheral IV Care [RC] . DIRECTED Care 03/05/20 11:02 Active CULTURE BLOOD [BC] Stat Lab 03/05/20 11:20 Received CULTURE BLOOD [BC] Stat Lab 03/05/20 11:47 Received Sodium Chloride 0.9% [Normal Saline] 45 ml Med 03/05/20 13:30 Active IV ASDIRECTED Sodium Chloride 0.9% [Saline Flush] Med 03/05/20 11:02 Active 10 ml FLUSH ASDIRECTED PRN Sodium Chloride 0.9% [Saline Flush] Med 03/05/20 13:23 Active 10 ml FLUSH ONETIME PRN Blood Culture x2 Reflex Set [OM.PC] Stat Oth 03/05/20 11:01 Ordered Isolation [COMM] Routine Oth 03/05/20 11:01 Ordered Peripheral IV Insertion Adult [OM.PC] Routine Oth 03/05/20 11:02 Ordered Medication Orders Sodium Chloride (Normal Saline) 45 mls @ 40 mls/hr IV ASDIRECTED JAMIE Last Admin: 03/05/20 13:53 Dose: 40 mls/hr Documented by: CHANDRA Sodium Chloride (Saline Flush) 10 ml FLUSH ASDIRECTED PRN PRN Reason: Keep Vein Open Last Admin: 03/05/20 11:46 Dose: 10 ml Documented by: PRASANNA Sodium Chloride (Saline Flush) 10 ml FLUSH ONETIME PRN PRN Reason: Keep Vein Open Last Admin: 03/05/20 13:53 Dose: 10 ml Documented by: CHANDRA Labs: Laboratory Tests 03/05/20 03/05/20 03/05/20 Range/Units 10:45 11: 11:20 WBC 11.77 H (3.98-10.04) K/mm3 RBC 4.74 (3.98-5.22) M/mm3 Hgb 14.5 (11.2-15.7) gm/dl Hct 45.2 H (34.1-44.9) % MCV 95.4 H (79.4-94.8) fl MCH 30.6 (25.6-32.2) pg MCHC 32.1 L (32.2-35.5) g/dl RDW Std Deviation 48.9 H (36.4-46.3) fL Plt Count 498 H D (182-369) K/mm3 MPV 8.5 L (9.4-12.3) fl Neutrophils % (Manual) 88 H (40-60) % Band Neutrophils % 0 (0-10) % Lymphocytes % (Manual) 6 L (20-40) % Atypical Lymphs % 0 % Monocytes % (Manual) 5 (2-10) % Eosinophils % (Manual) 0 L (0.7-5.8) % Basophils % (Manual) 1 (0.1-1.2) Platelet Estimate Adequate RBC Morph Comment Normal PT (9.7-12.0) SECONDS INR APTT (21.7-31.4) SECONDS D-Dimer, Quantitative (0.19-0.50) mg/L Sodium (136-145) mEq/L Potassium (3.5-5.1) mEq/L Chloride (98-107) mEq/L Carbon Dioxide (21-32) mEq/L Anion Gap (5-15) BUN (7-18) mg/dL Creatinine (0.55-1.02) mg/dL Est Cr Clr Drug Dosing mL/min Estimated GFR (MDRD) (>60) mL/min BUN/Creatinine Ratio (14-18) Glucose (83-115) mg/dL Lactic Acid (0.4-2.0) mmol/L Calcium (8.5-10.1) mg/dL Magnesium (1.8-2.4) mg/dl Ferritin (8-252) ng/ml Total Bilirubin (0.2-1.0) mg/dL AST (15-37) U/L ALT (14-59) U/L Alkaline Phosphatase (46-116) U/L Lactate Dehydrogenase (81-234) U/L Troponin I (0.00-0.056) ng/mL C-Reactive Protein <0.2 (<1.0) mg/dL NT-Pro-B Natriuret Pep (0-450) pg/mL Total Protein (6.4-8.2) g/dl Albumin (3.4-5.0) g/dl Globulin gm/dL Albumin/Globulin Ratio (1-2) Urine Color Yellow (Yellow) Urine Appearance Clear (Clear) Urine pH 7.5 (5.0-8.0) Ur Specific Smock 1.025 (1.005-1.030) Urine Protein Trace H (Negative) Urine Glucose (UA) Negative (Negative) Urine Ketones Trace H (Negative) Urine Occult Blood Negative (Negative) Urine Nitrite Negative (Negative) Urine Bilirubin Negative (Negative) Urine Urobilinogen 0.2 (0.2-1.0) Ur Leukocyte Esterase Negative (Negative) Urine RBC 0-5 (0-5) /hpf Urine WBC 0-5 (0-5) /hpf Ur Squamous Epith Cells 0-5 (0-5) /hpf Amorphous Sediment Rare H (NOT SEEN) /hpf Urine Bacteria Few (FEW) /hpf Urine Mucus Not seen (FEW) /hpf SARS-CoV-2 RNA (DANE) (NEGATIVE) 03/05/20 03/05/20 03/05/20 Range/Units 11: 11: 11: WBC (3.98-10.04) K/mm3 RBC (3.98-5.22) M/mm3 Hgb (11.2-15.7) gm/dl Hct (34.1-44.9) % MCV (79.4-94.8) fl MCH (25.6-32.2) pg MCHC (32.2-35.5) g/dl RDW Std Deviation (36.4-46.3) fL Plt Count (182-369) K/mm3 MPV (9.4-12.3) fl Neutrophils % (Manual) (40-60) % Band Neutrophils % (0-10) % Lymphocytes % (Manual) (20-40) % Atypical Lymphs % % Monocytes % (Manual) (2-10) % Eosinophils % (Manual) (0.7-5.8) % Basophils % (Manual) (0.1-1.2) Platelet Estimate RBC Morph Comment PT 11.2 (9.7-12.0) SECONDS INR 1.05 APTT 23.0 (21.7-31.4) SECONDS D-Dimer, Quantitative 4.23 H (0.19-0.50) mg/L Sodium 143 (136-145) mEq/L Potassium 4.1 (3.5-5.1) mEq/L Chloride 106 (98-107) mEq/L Carbon Dioxide 26 (21-32) mEq/L Anion Gap 15.1 H (5-15) BUN 15 (7-18) mg/dL Creatinine 0.9 (0.55-1.02) mg/dL Est Cr Clr Drug Dosing 45.92 mL/min Estimated GFR (MDRD) > 60 (>60) mL/min BUN/Creatinine Ratio 16.7 (14-18) Glucose 99 (83-115) mg/dL Lactic Acid (0.4-2.0) mmol/L Calcium 8.4 L (8.5-10.1) mg/dL Magnesium 2.2 (1.8-2.4) mg/dl Ferritin (8-252) ng/ml Total Bilirubin 0.5 (0.2-1.0) mg/dL AST 27 (15-37) U/L ALT 38 (14-59) U/L Alkaline Phosphatase 105 (46-116) U/L Lactate Dehydrogenase 237 H (81-234) U/L Troponin I < 0.017 (0.00-0.056) ng/mL C-Reactive Protein (<1.0) mg/dL NT-Pro-B Natriuret Pep 190 (0-450) pg/mL Total Protein 6.3 L (6.4-8.2) g/dl Albumin 3.4 (3.4-5.0) g/dl Globulin 2.9 gm/dL Albumin/Globulin Ratio 1.2 (1-2) Urine Color (Yellow) Urine Appearance (Clear) Urine pH (5.0-8.0) Ur Specific Smock (1.005-1.030) Urine Protein (Negative) Urine Glucose (UA) (Negative) Urine Ketones (Negative) Urine Occult Blood (Negative) Urine Nitrite (Negative) Urine Bilirubin (Negative) Urine Urobilinogen (0.2-1.0) Ur Leukocyte Esterase (Negative) Urine RBC (0-5) /hpf Urine WBC (0-5) /hpf Ur Squamous Epith Cells (0-5) /hpf Amorphous Sediment (NOT SEEN) /hpf Urine Bacteria (FEW) /hpf Urine Mucus (FEW) /hpf SARS-CoV-2 RNA (DANE) (NEGATIVE) 03/05/20 03/05/20 03/05/20 Range/Units 11:20 11:20 11:59 WBC (3.98-10.04) K/mm3 RBC (3.98-5.22) M/mm3 Hgb (11.2-15.7) gm/dl Hct (34.1-44.9) % MCV (79.4-94.8) fl MCH (25.6-32.2) pg MCHC (32.2-35.5) g/dl RDW Std Deviation (36.4-46.3) fL Plt Count (182-369) K/mm3 MPV (9.4-12.3) fl Neutrophils % (Manual) (40-60) % Band Neutrophils % (0-10) % Lymphocytes % (Manual) (20-40) % Atypical Lymphs % % Monocytes % (Manual) (2-10) % Eosinophils % (Manual) (0.7-5.8) % Basophils % (Manual) (0.1-1.2) Platelet Estimate RBC Morph Comment PT (9.7-12.0) SECONDS INR APTT (21.7-31.4) SECONDS D-Dimer, Quantitative (0.19-0.50) mg/L Sodium (136-145) mEq/L Potassium (3.5-5.1) mEq/L Chloride (98-107) mEq/L Carbon Dioxide (21-32) mEq/L Anion Gap (5-15) BUN (7-18) mg/dL Creatinine (0.55-1.02) mg/dL Est Cr Clr Drug Dosing mL/min Estimated GFR (MDRD) (>60) mL/min BUN/Creatinine Ratio (14-18) Glucose (83-115) mg/dL Lactic Acid 1.5 (0.4-2.0) mmol/L Calcium (8.5-10.1) mg/dL Magnesium (1.8-2.4) mg/dl Ferritin 100 (8-252) ng/ml Total Bilirubin (0.2-1.0) mg/dL AST (15-37) U/L ALT (14-59) U/L Alkaline Phosphatase (46-116) U/L Lactate Dehydrogenase (81-234) U/L Troponin I (0.00-0.056) ng/mL C-Reactive Protein (<1.0) mg/dL NT-Pro-B Natriuret Pep (0-450) pg/mL Total Protein (6.4-8.2) g/dl Albumin (3.4-5.0) g/dl Globulin gm/dL Albumin/Globulin Ratio (1-2) Urine Color (Yellow) Urine Appearance (Clear) Urine pH (5.0-8.0) Ur Specific Smock (1.005-1.030) Urine Protein (Negative) Urine Glucose (UA) (Negative) Urine Ketones (Negative) Urine Occult Blood (Negative) Urine Nitrite (Negative) Urine Bilirubin (Negative) Urine Urobilinogen (0.2-1.0) Ur Leukocyte Esterase (Negative) Urine RBC (0-5) /hpf Urine WBC (0-5) /hpf Ur Squamous Epith Cells (0-5) /hpf Amorphous Sediment (NOT SEEN) /hpf Urine Bacteria (FEW) /hpf Urine Mucus (FEW) /hpf SARS-CoV-2 RNA (DANE) Negative (NEGATIVE) Meds: Medications Generic Name Dose Route Start Last Admin Trade Name Freq PRN Reason Stop Dose Admin Sodium Chloride 45 mls @ 40 mls/hr 03/05/20 13:30 03/05/20 13:53 Normal Saline IV 40 mls/hr ASDIRECTED JAMIE Administration Sodium Chloride 10 ml 03/05/20 11:02 03/05/20 11:46 Saline Flush FLUSH 10 ml ASDIRECTED PRN Administration Keep Vein Open Sodium Chloride 10 ml 03/05/20 13:23 03/05/20 13:53 Saline Flush FLUSH 10 ml ONETIME PRN Administration Keep Vein Open Discontinued Medications Generic Name Dose Route Start Last Admin Trade Name Kelly PRN Reason Stop Dose Admin Iopamidol 100 ml 03/05/20 13:23 03/05/20 13:53 Isovue-370 (76%) IVPUSH 03/05/20 13:24 100 ml ONETIME ONE Administration - Re-Assessments/Exams Free Text/Narrative Re-Assessment/Exam: 03/05/20 11:14 Patient presents to the ED for evaluation of her nausea vomiting, and ongoing weakness. We will get labs to rule out sepsis at this time. 03/05/20 14:13 The patient's labs have resulted, her D-dimer was markedly elevated at 4.3. Coronavirus was negative, all other labs are essentially unremarkable. She did get a CT angio of her chest, and this was negative for any sort of pulmonary embolus at this time. We will go ahead and ultrasound her legs to see if there is any sort of blood clots in her legs. 03/05/20 14:56 The medical supply technician has completed the study, and there does look to be a blood clot within the left posterior tibial vein, as reported by the medical supply technician. Official radiology read is pending. If the radiology read correlates this, we will get her started on Xarelto and have her follow-up with her regular care provider in 3 weeks for continuation of this medication. I do believe that the patient had some sort of viral gastroenteritis that would have caused the nausea and vomiting. She will also be sent home with medication for nausea. 03/05/20 15:20 Official radiology report does demonstrate a left calf vein thrombosis in the posterior tibial vein. Departure - Departure Time of Disposition: 15:20 Disposition: Home, Self-Care 01 Condition: Good Clinical Impression: Viral gastroenteritis DVT (deep venous thrombosis) Qualifiers: DVT location: lower extremity Affected thrombotic vein of extremity: popliteal Chronicity: acute Laterality: left Qualified Code(s): I82.432 - Acute embolism and thrombosis of left popliteal vein - Discharge Information *PRESCRIPTION DRUG MONITORING PROGRAM REVIEWED*: No *COPY OF PRESCRIPTION DRUG MONITORING REPORT IN PATIENT KIRSTEN: No Prescriptions: Rivaroxaban [Xarelto] 15 mg PO BID 21 Days #42 tab Ondansetron [Zofran ODT] 4 mg PO Q8H PRN #15 tab.dis PRN Reason: Nausea Instructions: Bleeding Precautions When on Anticoagulant Therapy, Adult, Deep Vein Thrombosis Referrals: Veena Eid, CLOTHING DESIGNER [Primary Care Provider] - Forms: ED Department Discharge Additional Instructions: You were evaluated in the ER today for your nausea/vomiting/weakness. Laboratory evaluation is essentially unremarkable, it is likely that you are suffering from a viral gastroenteritis, please try to increase your oral fluid intake over the next few days, stick to a clear liquid diet for the next 24 to 48 hours and advance to a bland as tolerated. You have been given some Zofran, and antinausea medication, please use 1 tab every 8 hours as needed dissolvable under your tongue for further nausea. Laboratory evaluation did demonstrate an elevated D-dimer, which is a test that is elevated sometimes when there are clots present. A CT of your chest ruled out a pulmonary embolus, but ultrasounds of your leg showed that there is a DVT within your left leg. You will need to be started on anticoagulants, you have been given a prescription for Xarelto, for the first 3 weeks she will take a 15 mg tablet 2 times a day, and then after the first 3 weeks are done, you will take a 1-20 mg tablet until deemed otherwise by your regular care provider. You have been provided with prescription for the first 3 weeks, you will need to follow-up with your regular care provider for continuation of the 20 mg tablets. Please return to the ER at any time if symptoms change or worsen. Sepsis Event Note (ED) - Focused Exam Vital Signs: Vital Signs Temp Pulse Resp BP Pulse Ox 03/05/20 11:18 97.0 F 72 18 134/82 98 - My Orders Last 24 Hours: My Active Orders 03/05/20 11:01 EKG Documentation Completion [RC] STAT Blood Culture x2 Reflex Set [OM.PC] Stat Isolation [COMM] Routine 03/05/20 11:02 Peripheral IV Care [RC] . DIRECTED Sodium Chloride 0.9% [Saline Flush] 10 ml FLUSH ASDIRECTED PRN Peripheral IV Insertion Adult [OM.PC] Routine 03/05/20 11:20 CULTURE BLOOD [BC] Stat 03/05/20 11:47 CULTURE BLOOD [BC] Stat 03/05/20 13:23 Sodium Chloride 0.9% [Saline Flush] 10 ml FLUSH ONETIME PRN 03/05/20 13:30 Sodium Chloride 0.9% [Normal Saline] 45 ml IV ASDIRECTED - Assessment/Plan Last 24 Hours: My Active Orders 03/05/20 11:01 EKG Documentation Completion [RC] STAT Blood Culture x2 Reflex Set [OM.PC] Stat Isolation [COMM] Routine 03/05/20 11:02 Peripheral IV Care [RC] . DIRECTED Sodium Chloride 0.9% [Saline Flush] 10 ml FLUSH ASDIRECTED PRN Peripheral IV Insertion Adult [OM.PC] Routine 03/05/20 11:20 CULTURE BLOOD [BC] Stat 03/05/20 11:47 CULTURE BLOOD [BC] Stat 03/05/20 13:23 Sodium Chloride 0.9% [Saline Flush] 10 ml FLUSH ONETIME PRN 03/05/20 13:30 Sodium Chloride 0.9% [Normal Saline] 45 ml IV ASDIRECTED
[2020-03-05 11:24] VITALS: BP 134/82; PULSE 72
--- NOTE | 2020-03-05 12:08 | CR ---
PROCEDURE INFORMATION: Exam: XR Chest, 1 View Exam date and time: 03/05/2020 10:47 AM Age: 75 years old Clinical indication: Other: Weakness, covid R/O TECHNIQUE: Imaging protocol: XR of the chest Views: 1 view. COMPARISON: CT Chest Abdomen Pelvis wo Cont 12/02/2019 6:36 PM FINDINGS: Tubes, catheters and devices: Permanent pacemaker. Lungs: Suboptimal evaluation of the lung bases. No consolidation. Pleural space: Unremarkable. No pleural effusion. No pneumothorax. Heart/Mediastinum: Unremarkable. No cardiomegaly. Vasculature: Tortuosity of the thoracic aorta. Bones/joints: No acute findings. IMPRESSION: No acute findings. Thank you for allowing us to participate in the care of your patient. Dictated and Authenticated by: Narayan Limon MD 03/05/2020 12:37 PM Central Time ([place] & [place]av[place]) [facility]
[2020-03-05] MEDS ORDERED: Iopamidol 755 Mg/ML 100 ML Bottle IVPUSH ONE (13:23)
[2020-03-05] MEDS ORDERED: Sodium Chloride 0.9% 45 ML IV SCH (13:30)
--- NOTE | 2020-03-05 14:04 | CT ---
PROCEDURE INFORMATION: Exam: CT Angiography Chest With Contrast Exam date and time: 03/05/2020 1:27 PM Age: 75 years old Clinical indication: Other: Elevated d-dimer, covid neg TECHNIQUE: Imaging protocol: Computed tomographic angiography of the chest with intravenous contrast. 3D rendering (Not supervised by radiologist): MIP and/or 3D reconstructed images were created by the technologist. Contrast material: ISOVUE 370; Contrast volume: 100 ml; Contrast route: INTRAVENOUS (IV); COMPARISON: CT Ang Chest 03/25/2016 1:00 PM FINDINGS: Tubes, catheters and devices: Permanent pacemaker/AICD device. Pulmonary arteries: No pulmonary embolism. Aorta: No aortic aneurysm. No aortic dissection. Lungs: Minimal bibasilar atelectasis or scar. No consolidation or mass. Pleural space: No pleural effusion. No pneumothorax. Heart: No cardiomegaly. No pericardial effusion. Lymph nodes: No significant adenopathy. Stomach and bowel: Prominent hiatal hernia, the stomach is partially intrathoracic. Bones/joints: No acute findings. Old thoracic spine fracture, multiple old right rib fractures. Soft tissues: Unremarkable. IMPRESSION: No acute findings. Thank you for allowing us to participate in the care of your patient. Dictated and Authenticated by: Narayan Limon MD 03/05/2020 3:02 PM Central Time ([place] & [place]) [facility]
--- NOTE | 2020-03-05 15:20 | US ---
PROCEDURE INFORMATION: Exam: US Duplex Lower Extremity Veins, Bilateral Exam date and time: 03/05/2020 2:34 PM Age: 75 years old Clinical indication: Abnormal findings; Abnormal lab test; Elevated d-dimer TECHNIQUE: Imaging protocol: Real-time duplex ultrasound of the extremities with 2-D rutledge scale, color Doppler flow and spectral waveform analysis with image documentation. Complete exam focused on the bilateral lower extremity veins. COMPARISON: No relevant prior studies available. FINDINGS: Right deep veins: Unremarkable. The common femoral, femoral, proximal profunda femoral and popliteal veins are patent without thrombus. Normal Doppler waveforms. Normal compressibility and/or augmentation response. Right superficial veins: Saphenofemoral junction is patent without thrombus. Left deep veins: The common femoral, femoral, proximal profunda femoral and popliteal veins are patent without thrombus. Posterior tibial calf vein thrombosis. Left superficial veins: Saphenofemoral junction is patent without thrombus. Soft tissues: Unremarkable. IMPRESSION: Left calf vein thrombosis in the posterior tibial vein. Thank you for allowing us to participate in the care of your patient. Dictated and Authenticated by: Narayan Limon MD 03/05/2020 4:18 PM Central Time ([place] & [place]) [facility]
== END 2020-03-05 15:30 | disposition home or self-care (01) ==
LOC: JD.ED 10:47
DX: A08.4 Viral intestinal infection, unspecified (principal); I82.432 Acute embolism and thrombosis of left popliteal vein; I10 Essential (primary) hypertension; E78.00 Pure hypercholesterolemia, unspecified; G30.9 Alzheimer's disease, unspecified; F02.80 Dementia in other diseases classified elsewhere, unspecified severity, without behavioral disturbance, psychotic disturbance, mood disturbance, and anxiety; Z88.2 Allergy status to sulfonamides; Z79.899 Other long term (current) drug therapy; Z79.01 Long term (current) use of anticoagulants; Z20.828 Contact with and (suspected) exposure to other viral communicable diseases
CPT/HCPCS: 36415; 71045; 71275; 80053; 81001; 82728; 83605; 83615; 83735; 83880; 84484; 85007; 85027; 85379; 85610; 85730; 86140; 87040; 87804; 93005; 93970; 99285; Q9967; U0002; 93010; 99284

== ENCOUNTER 2020-03-06 13:57 | Emergency (ER) | payer MEDICARE, BC ==
[2020-03-06] MEDS ORDERED: Sodium Chloride 0.9% 10 ML Syringe FLUSH PRN (14:40)
[2020-03-06] MEDS ORDERED: Sodium Chloride 0.9% 1,000 ML IV SCH (14:45)
--- NOTE | 2020-03-06 15:20 | CT ---
Addendum created by Reinaldo Steele MD on 03/06/2020 4:17 PM Central Time ([place] & [place]): THIS REPORT CONTAINS FINDINGS THAT MAY BE CRITICAL TO PATIENT CARE. The findings were verbally communicated via telephone conference with SKYE MASSEY at 4:16 PM [employer] on 03/06/2020. The findings were acknowledged and understood. Initial Report created on 03/06/2020 4:13 PM Central Time ([place] & [place]): PROCEDURE INFORMATION: Exam: CT Head Without Contrast Exam date and time: 03/06/2020 2:43 PM Age: 75 years old Clinical indication: Weakness, extremity; Patient HX: Not talking and generalized weakness TECHNIQUE: Imaging protocol: Computed tomography of the head without contrast. COMPARISON: CT Head wo Cont 12/02/2019 6:36 PM FINDINGS: Brain: There is a large high density hematoma/bleed within the cerebellum. Predominantly parenchymal although there may be some minimal associated subdural and subarachnoid component. There is some beginning mass-effect/impression on the 4th ventricle. Extensive deep white matter hypodensity compatible with chronic small vessel ischemic change. Diffuse moderate brain volume loss. Lacunar infarct along the right caudate. Cerebral ventricles: No ventriculomegaly. Bones/joints: Unremarkable. No acute fracture. Paranasal sinuses: Visualized sinuses are unremarkable. No fluid levels. Mastoid air cells: Visualized mastoid air cells are well aerated. Soft tissues: Unremarkable. IMPRESSION: Very large cerebellar bleed/hematoma involving both right and left cerebellar hemispheres. There is some beginning mass-effect on the 4th ventricle. Thank you for allowing us to participate in the care of your patient. Dictated and Authenticated by: Reinaldo Steele MD 03/06/2020 4:13 PM Central Time ([place] & [place]) [facility]
[2020-03-06] MEDS ORDERED: Factor IX Complex Human 500 UNIT VIAL IV ONE (15:23)
--- NOTE | 2020-03-06 15:43 | EDM.PDOC ---
ED HPI GENERAL MEDICAL PROBLEM - General Chief Complaint: Neurological Problem Stated Complaint: NOT COHERENT - HERE YESTERDAY, NOT BETTER Time Seen by Provider: 03/06/20 14:25 Source of Information: Reports: Patient, Family History Limitations: Reports: Altered Mental Status - History of Present Illness INITIAL COMMENTS - FREE TEXT/NARRATIVE: The patient returns to the ER because she is not responding like normal. Her last time known well was 7:30pm Wednesday night. One of her daughters will stay with her. She acted like she was more tired that night. She was put to bed a bout 7:30pm. In the morning she woke up and was not acting right. She appeared to lean to either side and seemed confused. She also had nausea and vomiting. She was evaluated here yesterday and a complete work up was done to include, labs, CT angio of her chest, UA and US of both legs. Her D-dimer was elevated and that is prompted the CT angio of her chest that showed no PE. An US of her legs showed a blood clot. The patient was put on xarelto. She had 2 doses. She now has more generalized weakness. It takes 2 people for her to get around. She cannot sit up. When I have her lift her arms she cannot do that and she drops her arms after I left them. She will follow commands. She has no fever, chills, cough, congestion, runny nose, or shortness of breath. Onset: Gradual Duration: Day(s): Severity: Moderate Improves with: Reports: None Worsens with: Reports: None Associated Symptoms: Reports: Nausea/Vomiting. Denies: Chest Pain, Cough, Fever/Chills, Headaches, Shortness of Breath Other Treatments MANAGER LPN: able to give her lisinopri and xarelto as crushed and put in applesauce - Related Data Allergies Allergy/AdvReac Type Severity Reaction Status Date / Time Sulfa (Sulfonamide Allergy Rash Verified 12/02/19 18:09 Antibiotics) Home Meds: Home Meds Memantine HCl [Namenda XR] 28 mg PO BEDTIME 03/25/16 [History] atorvaSTATin [Lipitor] 5 mg PO ASDIRECTED 03/25/16 [History] Cranberry 0 mg PO DAILY 05/06/19 [History] L.acidoph,Paracasei, B.lactis [Probiotic] 1 cap PO DAILY 05/06/19 [History] Levothyroxine [Synthroid] 88 mcg PO DAILY 05/06/19 [History] lisinopriL [Zestril] 5 mg PO DAILY 05/06/19 [History] Non-Formulary Medication [NF Drug] 1 tab PO DAILY 11/29/19 [History] Vitamin D3/Vitamin K2 (Mk4) [K2 Plus D3 Tablet] 1 each PO DAILY 11/29/19 [History] Cholecalciferol (Vitamin D3) [Vitamin D3] 2,000 unit PO BEDTIME 03/05/20 [History] Docusate Sodium [Colace] 100 mg PO DAILY 03/05/20 [History] Ondansetron [Zofran ODT] 4 mg PO Q8H PRN #15 tab.dis 03/05/20 [Rx] Rivaroxaban [Xarelto] 15 mg PO BID 21 Days #42 tab 03/05/20 [Rx] Vit C/E/Zn/Coppr/Lutein/Zeaxan [Preservision Areds 2 Softgel] 1 cap PO BID 03/05/20 [History] polyethylene glycoL 3350 [MiraLAX] 17 gm PO ASDIRECTED PRN 03/05/20 [History] Rivastigmine 1 each TD DAILY 03/06/20 [History] Sertraline [Zoloft] 25 mg PO DAILY 03/06/20 [History] cephALEXin [Cephalexin] 250 mg PO DAILY 03/06/20 [History] Past Medical History HEENT History: Reports: Impaired Vision Other HEENT History: wears glasses Cardiovascular History: Reports: High Cholesterol, Hypertension Respiratory History: Reports: None Gastrointestinal History: Reports: Chronic Constipation Genitourinary History: Reports: UTI, Recurrent DATABASE ADMINISTRATOR History: Reports: Musculoskeletal History: Reports: None Neurological History: Reports: Alzheimers Disease Other Neuro History: severe dementia Psychiatric History: Reports: Alzheimers Disease, Dementia Endocrine/Metabolic History: Reports: Other (See Below) Other Endocrine/Metabolic History: possible gout Hematologic History: Reports: None Immunologic History: Reports: None Oncologic (Cancer) History: Reports: None Dermatologic History: Reports: None - Infectious Disease History Infectious Disease History: Reports: None - Past Surgical History Cardiovascular Surgical History: Reports: None GI Surgical History: Reports: Cholecystectomy Endocrine Surgical History: Reports: None Neurological Surgical History: Reports: None Social & Family History - Tobacco Use Tobacco Use Status *Q: Never Tobacco User - Caffeine Use Caffeine Use: Reports: Tea - Recreational Drug Use Recreational Drug Use: No - Living Situation & Occupation Living situation: Reports: with Family (Lives with daughters; full care) ED ROS GENERAL - Review of Systems Review Of Systems: Unable To Obtain (Patient will not) Reason Not Obtained: The patient will not or cannot talk ED EXAM, NEURO - Physical Exam Exam: See Below Exam Limited By: Other (The patient will not talk or cannot talk) General Appearance: No Apparent Distress, Other (Sleepy) Ears: Normal External Exam Nose: Normal Inspection Head Exam: Atraumatic, Normocephalic Neck: Normal Inspection, Supple, Non-Tender Respiratory/Chest: No Respiratory Distress, Lungs Clear, Normal Breath Sounds Cardiovascular: Regular Rate, Rhythm, No Edema, No Murmur GI/Abdominal: Soft, Non-Tender, No Organomegaly, No Mass Neurological: Other (The patient is sleepy. She will open her eyes and she will follow commands but she will not talk. She has bilateral arm weakness. She will drip her arms when I left them. She has equal nursing unit clerk strength and equal push with her feet) #1 Interpretation EKG Date: 03/06/20 Time: 15:15 Rhythm: NSR Rate (Beats/Min): 69 [place]: Normal P-Wave: Present QRS: Normal ST-T: Normal QT: Normal Course - Vital Signs Last Recorded V/S: Last Vital Signs Temp 97.1 F 03/06/20 16:10 Pulse 80 03/06/20 17:45 Resp 20 03/06/20 17:45 BP 146/80 H 03/06/20 17:45 Pulse Ox 95 03/06/20 17:45 - Orders/Labs/Meds Orders: Active Orders 24 hr Category Date Time Status Cardiac Monitoring [RC] . DIRECTED Care 03/06/20 14:40 Active EKG Documentation Completion [RC] STAT Care 03/06/20 14:41 Active Peripheral IV Care [RC] . DIRECTED Care 03/06/20 14:41 Active Sodium Chloride 0.9% [Normal Saline] 1,000 ml Med 03/06/20 14:45 Active IV .BOLUS Sodium Chloride 0.9% [Saline Flush] Med 03/06/20 14:40 Active 10 ml FLUSH ASDIRECTED PRN Peripheral IV Insertion Adult [OM.PC] Stat Oth 03/06/20 14:40 Ordered Medication Orders Sodium Chloride (Normal Saline) 1,000 mls @ 1,000 mls/hr IV .BOLUS JAMIE Last Admin: 03/06/20 15:00 Dose: 1,000 mls/hr Documented by: ANDRAE Sodium Chloride (Saline Flush) 10 ml FLUSH ASDIRECTED PRN PRN Reason: Keep Vein Open Last Admin: 03/06/20 15:01 Dose: 10 ml Documented by: ANDRAE Labs: Laboratory Tests 03/06/20 03/06/20 03/06/20 Range/Units 15:20 15:20 15:20 WBC 9.92 (3.98-10.04) K/mm3 RBC 4.60 (3.98-5.22) M/mm3 Hgb 14.0 (11.2-15.7) gm/dl Hct 43.9 (34.1-44.9) % MCV 95.4 H (79.4-94.8) fl MCH 30.4 (25.6-32.2) pg MCHC 31.9 L (32.2-35.5) g/dl RDW Std Deviation 48.4 H (36.4-46.3) fL Plt Count 488 H (182-369) K/mm3 MPV 8.3 L (9.4-12.3) fl Neut % (Auto) 69.0 (34.0-71.1) % Lymph % (Auto) 16.8 L (19.3-51.7) % [place] % (Auto) 13.3 H (4.7-12.5) % Eos % (Auto) 0.5 L (0.7-5.8) Baso % (Auto) 0.2 (0.1-1.2) % Neut # (Auto) 6.84 H (1.56-6.13) K/mm3 Lymph # (Auto) 1.67 (1.18-3.74) K/mm3 [place] # (Auto) 1.32 H (0.24-0.36) K/mm3 Eos # (Auto) 0.05 (0.04-0.36) K/mm3 Baso # (Auto) 0.02 (0.01-0.08) K/mm3 Sodium 142 (136-145) mEq/L Potassium 3.7 (3.5-5.1) mEq/L Chloride 106 (98-107) mEq/L Carbon Dioxide 26 (21-32) mEq/L Anion Gap 13.7 (5-15) BUN 14 (7-18) mg/dL Creatinine 0.8 (0.55-1.02) mg/dL Est Cr Clr Drug Dosing 53.83 mL/min Estimated GFR (MDRD) > 60 (>60) mL/min BUN/Creatinine Ratio 17.5 (14-18) Glucose 83 (83-115) mg/dL Lactic Acid 1.8 (0.4-2.0) mmol/L Calcium 8.6 (8.5-10.1) mg/dL Total Bilirubin 0.6 (0.2-1.0) mg/dL AST 23 (15-37) U/L ALT 31 (14-59) U/L Alkaline Phosphatase 107 (46-116) U/L Troponin I < 0.017 (0.00-0.056) ng/mL Total Protein 6.3 L (6.4-8.2) g/dl Albumin 3.3 L (3.4-5.0) g/dl Globulin 3.0 gm/dL Albumin/Globulin Ratio 1.1 (1-2) Meds: Medications Generic Name Dose Route Start Last Admin Trade Name Freq PRN Reason Stop Dose Admin Sodium Chloride 1,000 mls @ 1,000 mls/hr 03/06/20 14:45 03/06/20 15:00 Normal Saline IV 1,000 mls/hr .BOLUS JAMIE Administration Sodium Chloride 10 ml 03/06/20 14:40 03/06/20 15:01 Saline Flush FLUSH 10 ml ASDIRECTED PRN Administration Keep Vein Open Discontinued Medications Generic Name Dose Route Start Last Admin Trade Name Freq PRN Reason Stop Dose Admin Factor IX (Pha) 2,000 unit 03/06/20 15:23 03/06/20 15:46 Kcentra IV 03/06/20 15:24 2,000 unit ONETIME ONE Administration - Re-Assessments/Exams Free Text/Narrative Re-Assessment/Exam: 03/06/20 17:21 I ordered an EKG, CT of her head and labs. Her EKG shows a NSR with no acute c hanges. The CT of her head shows very large cerebellar bleed/hematoma involving both right and left cerebellar hemispheres. There is some beginning mass- effect on the 4th ventricle. I called [facility] in [place] and talked with Dr Stewart the neurosurgeon. He did accept the patient. She is however Bahai and will not take a blood transfusion. Dr Stewart would not do surgery if cannot give blood. He wants me to talk to the family. I talked with them and they wanted me to call [facility] in [place] and see if they would do the surgery without blood transfusion. I called there and talk with Dr Madison and he was okay with that part but he said that the surgery that may happen would be very extensive and she may not recover to baseline. He wanted me to talk to them. I did and Dr Madison talked with them. I am waiting to here back from both Dr Madison and family. 03/06/20 18:[address] family [address] with Dr Madison and they have decided against the surgery and would like to go to [facility]. I will give them a call. 03/06/20 19:[address] Huerta and he accepted the patient. Departure - Departure Time of Disposition: 20:00 Disposition: DC/Tfer to Acute Hospital 02 Condition: Fair Clinical Impression: Intracranial hemorrhage DVT (deep venous thrombosis) Qualifiers: DVT location: lower extremity Affected thrombotic vein of extremity: popliteal Chronicity: acute Laterality: left Qualified Code(s): I82.432 - Acute embolism and thrombosis of left popliteal vein - Discharge Information Referrals: Veena Eid, PRODUCT OWNER [Primary Care Provider] - Forms: ED Department Discharge Sepsis Event Note (ED) - Evaluation Sepsis Screening Result: No Definite Risk - Focused Exam Vital Signs: Vital Signs Temp Pulse Resp BP Pulse Ox 03/06/20 17:45 80 20 146/80 H 95 03/06/20 16:10 97.1 F 03/06/20 14:20 98.4 F 76 20 178/83 H 97 - My Orders Last 24 Hours: My Active Orders 03/06/20 14:40 Cardiac Monitoring [RC] . DIRECTED Sodium Chloride 0.9% [Saline Flush] 10 ml FLUSH ASDIRECTED PRN Peripheral IV Insertion Adult [OM.PC] Stat 03/06/20 14:41 EKG Documentation Completion [RC] STAT Peripheral IV Care [RC] . DIRECTED 03/06/20 14:45 Sodium Chloride 0.9% [Normal Saline] 1,000 ml IV .BOLUS - Assessment/Plan Last 24 Hours: My Active Orders 03/06/20 14:40 Cardiac Monitoring [RC] . DIRECTED Sodium Chloride 0.9% [Saline Flush] 10 ml FLUSH ASDIRECTED PRN Peripheral IV Insertion Adult [OM.PC] Stat 03/06/20 14:41 EKG Documentation Completion [RC] STAT Peripheral IV Care [RC] . DIRECTED 03/06/20 14:45 Sodium Chloride 0.9% [Normal Saline] 1,000 ml IV .BOLUS
[2020-03-06 17:46] VITALS: BP 146/80; PULSE 80
== END 2020-03-06 21:54 ==
LOC: JD.ED 13:57
DX: I62.9 Nontraumatic intracranial hemorrhage, unspecified (principal); I82.432 Acute embolism and thrombosis of left popliteal vein; Z88.2 Allergy status to sulfonamides; Z79.899 Other long term (current) drug therapy; Z79.01 Long term (current) use of anticoagulants; E78.00 Pure hypercholesterolemia, unspecified; I10 Essential (primary) hypertension; G30.9 Alzheimer's disease, unspecified; F02.80 Dementia in other diseases classified elsewhere, unspecified severity, without behavioral disturbance, psychotic disturbance, mood disturbance, and anxiety
CPT/HCPCS: 36415; 70450; 80053; 83605; 84484; 85025; 93005; 96361; 96374; 99285; C9132; J7030; 93010